=== PATIENT | female | born 1975 | race Caucasian/White ===

== ENCOUNTER 2020-09-12 20:37 | Inpatient (IN) ==
[2020-09-12 20:48] LABS: ABG ALLEN TEST POS; ABG BASE EXCESS 5.5 mmol/L (-2.0-2.0); ABG HCO3 29.9 mmol/L (22-26)
--- NOTE | 2020-09-12 20:55 | DR.SOBA ---
HPI Time Seen Time Seen by Provider: 09/12/20 20:51 Primary Care Physician Primary Care Physician: ANGELLA HPI Comment HPI Comment: Cough and worsening sob x a week after symptoms started last Friday; covid test + this past Friday as below; she finished ivermectin and is still taking zpak. Complaints Chief Complaint:: PT WHEELED INTO ER VIA W/C BY FAMILY MEMBER. PT STATES SHE BECOMES SOB WITH EXERTION. PATIENT STATES SHE TESTED POSITIVE FOR COVID FRIDAY. S&S COUGHING, LOSS OF ENERGY, HEADACHE AND LOSS OF TASTE. THE INTIAL SYMPTOM SHE HAD ON FRIDAY WAS FEVER. O2 SATS IN TRIAGE ON ROOM WAS 84%, AFTER WALKING FROM TRIAGE TO ER4 O2 SATS WAS 74%. NURSE NOTIFED RT FOR STAT ABG. Source History Provided: Patient Mode of Arrival Mode of Arrival: Wheelchair Timing Onset of Chief Complaint: 09/05/20 PMH PMH Past Medical History: Yes Past Medical History Comment: MS Past Surgical History: Yes Surgical History: , Cholecystectomy and [employer] Surgery Past Surgical History Comment: D7C Family History History of Family Medical Conditions: No (PT ADOPTED) Social History Does patient currently use any type of tobacco product: No Have you used tobacco products in the last 12 months: No Type of Tobacco Use: None Does any household member use tobacco: No Alcohol Use: None Do you use any recreational Drugs:: No Lives With: Family Lives Where: Home Infectious screening In the last 2 months have you had wt loss of >10#?: NO Have you had fever, night sweats or hemotysis?: No Have you traveled outside the country in the last 6 months?: No Isolation: Droplet ROS Review of Systems Eyes: No Symptoms Reported ENTM: No Symptoms Reported Cardiovascular: No Symptoms Reported Genitourinary: No Symptoms Reported Neurological: No Symptoms Reported Musculoskeletal: No Symptoms Reported Integumentary: No Symptoms Reported Hematologic/Lymphatic: No Symptoms Reported Endocrine: No Symptoms Reported Psychiatric: No Symptoms Reported PE Vital Signs Vitals: Temperature 98.9 F Pulse Rate 84 Respiratory Rate 22 Blood Pressure 113/63 O2 Sat by Pulse Oximetry 95 General Limitations: No Limitations General Appearance: Alert and In No Apparent Distress Head Head Exam: Normal Inspection Eyes Eye exam: Normal Appearance ENT ENT Exam: Normal Exam Neck Neck Exam: Normal Inspection Chest Chest Inspection: Normal Inspection Respiratory Respiratory Exam: Bilateral: Clear to Auscultation and Bilateral: Decreased Breath Sounds Cardiovascular Cardiovascular Exam: Regular Rate and Normal Rhythm Abdominal Exam Abdominal Exam: Normal Inspection, Normal Bowel Sounds and Soft Extremities Extremities Exam: Normal Inspection Back Back Exam: Normal Inspection Neurologic Neurological Exam: Alert, Oriented X3 and CN II-XII Intact Psychiatric Psychiatric Exam: Normal Affect and Normal Mood Skin Skin Exam: Warm, Dry, Intact and Normal Color MDM Differential Diagnosis Differential Diagnosis: Pneumonia, Pulmonary embolism, Respiratory Failure and URI COURSE Reevaluation 1st: Improved (resting quietly; feels "better") ROR Labs Reviewed Laboratory Results Reviewed?: Yes Result Diagrams: 09/12/20 21:13 09/12/20 21:13 Laboratory: WBC 4.3 X10^3/uL (3.6-10.0) 09/12/20 21:13 RBC 4.56 X10^6/uL (3.5-5.4) 09/12/20 21:13 Hgb 11.2 g/dL (12.0-16.0) L 09/12/20 21:13 Hct 34.6 % (36.0-47.0) L 09/12/20 21:13 MCV 75.8 fL (80.0-100.0) L 09/12/20 21:13 MCH 24.5 pg (27.0-34.0) L 09/12/20 21:13 MCHC 32.3 g/dL (33.0-35.0) L 09/12/20 21:13 RDW 17.7 % (11.6-16.5) H 09/12/20 21:13 Plt Count 283 X10^3/uL (150.0-450.0) 09/12/20 21:13 MPV 7.9 fL (7.4-11.0) 09/12/20 21:13 Neut % (Auto) 65.5 % (42.0-75.0) 09/12/20 21:13 Lymph % (Auto) 23.5 % (21.0-51.0) 09/12/20 21:13 Routt % (Auto) 10.8 % (0.0-13.0) 09/12/20 21:13 Eos % (Auto) 0.0 % (0.9-2.9) L 09/12/20 21:13 Baso % (Auto) 0.2 % (0.2-1.0) 09/12/20 21:13 Neut # (Auto) 2.8 x10^3/uL (2.2-4.8) 09/12/20 21:13 Lymph # (Auto) 1.0 X10^3/uL (1.3-2.9) L 09/12/20 21:13 Routt # (Auto) 0.5 x10^3/uL (0.3-0.8) 09/12/20 21:13 Eos # (Auto) 0.0 x10^3/uL (0.0-0.2) 09/12/20 21:13 Baso # (Auto) 0.0 X10^3/uL (0.0-0.1) 09/12/20 21:13 Absolute Nucleated RBC 0.2 /100WBC 09/12/20 21:13 D-Dimer 0.55 ug/ml (0.0-0.57) 09/12/20 21:13 Sample Site Lra 09/12/20 20:20 ABG pH 7.460 (7.35-7.45) H 09/12/20 20:20 ABG pCO2 42.0 mmHg (35.0-45.0) 09/12/20 20:20 ABG pO2 53.0 mmHg (80.0-100.0) L 09/12/20 20:20 ABG HCO3 29.9 mmol/L (22-26) H 09/12/20 20:20 ABG O2 Saturation 89.0 % (90-100) L 09/12/20 20:20 ABG Base Excess 5.5 mmol/L (-2.0-2.0) H 09/12/20 20:20 Justus Test Pos 09/12/20 20:20 A-a Gradient 44.0 mmHg 09/12/20 20:20 FiO2 21.0 09/12/20 20:20 Blood Gas Comments Mireya well mts 09/12/20 20:20 Sodium 143 mmol/L (136-145) 09/12/20 21:13 Corrected Sodium 143 mmol/L (136-145) 09/12/20 21:13 Potassium 3.6 mmol/L (3.5-5.1) 09/12/20 21:13 Chloride 107 mmol/L (98-107) 09/12/20 21:13 Carbon Dioxide 31.5 mmol/L (21-32) 09/12/20 21:13 BUN 10 mg/dL (7-18) 09/12/20 21:13 Creatinine 0.69 mg/dL (0.55-1.02) 09/12/20 21:13 Est GFR (MDRD) Af Amer > 60 (>60) 09/12/20 21:13 Est GFR (MDRD) Non-Af > 60 (>60) 09/12/20 21:13 Glucose 120 mg/dL (65-99) H 09/12/20 21:13 Calcium 7.8 mg/dL (8.5-10.1) L 09/12/20 21:13 Corrected Calcium 9.1 mg/dL (8.5-10.1) 09/12/20 21:13 Total Bilirubin 0.50 mg/dL (0.2-1.0) 09/12/20 21:13 AST 157 Units/L (15-37) H 09/12/20 21:13 ALT 157 Units/L (12-78) H 09/12/20 21:13 Alkaline Phosphatase 166 Units/L (46-116) H 09/12/20 21:13 Total Protein 6.9 g/dL (6.4-8.2) 09/12/20 21:13 Albumin 2.4 g/dL (3.4-5.0) L 09/12/20 21:13 Globulin 4.5 g/dL (2.5-4.5) 09/12/20 21:13 Albumin/Globulin Ratio 0.5 Ratio (1.1-2.1) L 09/12/20 21:13 Other Results Comments: no beds available; hypoxia worse with ambulation; discharge with explicit instructions to fup in AM for home oxygen XRAY XRAY Interpreted by: Radiologist X-ray Results: pcxr: Findings are most consistent with an atypical pneumonia pattern which may be associated with a nonspecific viral or atypical organism infection including COVID-19. Mildly prominent cardiac silhouette which may be magnified by technique. Opioid Opioid Risk Tool Age (Cuong box if 16-45): Yes History of Preadolescent Sexual Abuse: No Total: 1 Total Score Risk Category: Low Risk Copyright: [facility] predicting aberrant behaviors Diagnosis Discharge Problem: Atypical pneumonia, Hypoxia, Acute dehydration, COVID-19, Elevated LFTs Instructions Instructions: Hypoxia Forms: Precautions for COVID19 Patient Portal Social Distancing
[2020-09-12 21:19] LABS: BASOPHILS % (AUTO) 0.2 % (0.2-1.0); HEMATOCRIT 34.6 % (36.0-47.0); HEMOGLOBIN 11.2 g/dL (12.0-16.0); LYMPHOCYTES % (AUTO) 23.5 % (21.0-51.0); MEAN CORPUSCULAR HEMOGLOBIN 24.5 pg (27.0-34.0); MEAN CORPUSCULAR HGB CONC 32.3 g/dL (33.0-35.0); MEAN CORPUSCULAR VOLUME 75.8 fL (80.0-100.0); MEAN PLATELET VOLUME 7.9 fL (7.4-11.0); MONOCYTES # (AUTO) 0.5 x10^3/uL (0.3-0.8); MONOCYTES % (AUTO) 10.8 % (0.0-13.0); NEUTROPHILS # (AUTO) 2.8 x10^3/uL (2.2-4.8); NEUTROPHILS % (AUTO) 65.5 % (42.0-75.0); PLATELET COUNT 283 X10^3/uL (150.0-450.0); RED BLOOD COUNT 4.56 X10^6/uL (3.5-5.4); RED CELL DISTRIBUTION WIDTH 17.7 % (11.6-16.5); WHITE BLOOD COUNT 4.3 X10^3/uL (3.6-10.0)
[2020-09-12 21:31] LABS: ALANINE AMINOTRANSFERASE 157 Units/L (12-78); ALBUMIN 2.4 g/dL (3.4-5.0); ALKALINE PHOSPHATASE 166 Units/L (46-116); ASPARTATE AMINO TRANSFERASE 157 Units/L (15-37); BLOOD UREA NITROGEN 10 mg/dL (7-18); CALCIUM 7.8 mg/dL (8.5-10.1); CARBON DIOXIDE 31.5 mmol/L (21-32); CHLORIDE 107 mmol/L (98-107); COR CA(FOR HYPOALB) 9.1 mg/dL (8.5-10.1); COR NA(FOR HYPERGLY) 143 mmol/L (136-145); CREATININE 0.69 mg/dL (0.55-1.02); SODIUM 143 mmol/L (136-145); TOTAL PROTEIN 6.9 g/dL (6.4-8.2); eGFR NON BLACK RACES > 60 (>60)
--- NOTE | 2020-09-12 21:47 | RAD ---
HISTORYPT STATES SHE BECOMES SOB WITH EXERTION. PATIENT STATES SHE TESTED POSITIVE FOR COVID FELISHA. Coughing, LOSS OF ENERGY, HEADACHE AND LOSS OF TASTESTUDYCHEST, 1 VIEWCOMPARISONChest x-ray single frontal viewTECHNIQUEPortable chest radiographFINDINGSThe cardiac silhouette is prominent. Diffuse bilateral peribronchial and peripheral subpleural alveolar ground-glass opacities are demonstrated, the pattern which with favor an atypical pneumonia pattern. The pleural spaces are clear. There is no evidence of free air or pneumothorax. No acute osseous abnormalities of the chest are identified.IMPRESSIONFindings are most consistent with an atypical pneumonia pattern which may be associated with a nonspecific viral or atypical organism infection including COVID-19Mildly prominent cardiac silhouette which may be magnified by technique.Electronically signed by: RICHARD COOK (Sep 12, 2020 21:48:44)
[2020-09-12] MEDS ORDERED: NS 1000 ML 1,000 ML IV ONE (22:28)
[2020-09-12] MEDS ORDERED: SOLU-Medrol 125 MG VIAL IVP ONE (22:39)
[2020-09-12] MEDS ORDERED: NS 1000 ML 1,000 ML ONE (22:42)
[2020-09-12] MEDS ORDERED: SOLU-Medrol 125 MG VIAL ONE (22:42)
[2020-09-13] MEDS ORDERED: NS 1000 ML 1,000 ML ONE (01:08)
[2020-09-13] MEDS: NS 1000 ML 1,000 ML IV SCH ×3 (01:13→20:31)
[2020-09-13] MEDS: VIBRAMYCIN 100 MG in D5W 250 ML IV 250 ML IV SCH ×3 (02:27→20:32)
[2020-09-13 03:20] VITALS: BMI 45.6
[2020-09-13 05:26] LABS: BASOPHILS % (AUTO) 0.1 % (0.2-1.0); HEMOGLOBIN 10.9 g/dL (12.0-16.0); LYMPHOCYTES # (AUTO) 0.6 X10^3/uL (1.3-2.9); LYMPHOCYTES % (AUTO) 12.3 % (21.0-51.0); MEAN CORPUSCULAR HEMOGLOBIN 24.6 pg (27.0-34.0); MEAN CORPUSCULAR HGB CONC 32.9 g/dL (33.0-35.0); MEAN CORPUSCULAR VOLUME 74.7 fL (80.0-100.0); MEAN PLATELET VOLUME 8.2 fL (7.4-11.0); MONOCYTES # (AUTO) 0.2 x10^3/uL (0.3-0.8); MONOCYTES % (AUTO) 3.4 % (0.0-13.0); NEUTROPHILS % (AUTO) 84.2 % (42.0-75.0); PLATELET COUNT 291 X10^3/uL (150.0-450.0); RED BLOOD COUNT 4.42 X10^6/uL (3.5-5.4); RED CELL DISTRIBUTION WIDTH 17.1 % (11.6-16.5); WHITE BLOOD COUNT 4.7 X10^3/uL (3.6-10.0)
[2020-09-13 05:43] LABS: ALANINE AMINOTRANSFERASE 148 Units/L (12-78); ALBUMIN 2.2 g/dL (3.4-5.0); ALKALINE PHOSPHATASE 160 Units/L (46-116); ASPARTATE AMINO TRANSFERASE 142 Units/L (15-37); BLOOD UREA NITROGEN 9 mg/dL (7-18); CALCIUM 7.8 mg/dL (8.5-10.1); CARBON DIOXIDE 25.2 mmol/L (21-32); CHLORIDE 107 mmol/L (98-107); COR CA(FOR HYPOALB) 9.2 mg/dL (8.5-10.1); COR NA(FOR HYPERGLY) 143 mmol/L (136-145); CREATININE 0.55 mg/dL (0.55-1.02); SODIUM 141 mmol/L (136-145); TOTAL PROTEIN 6.7 g/dL (6.4-8.2); eGFR NON BLACK RACES > 60 (>60)
[2020-09-13 05:49] LABS: HYPOCHROMASIA SLIGHT; MICROCYTOSIS SLIGHT; PLATELET MORPHOLOGY COMMENT NORMAL (NORMAL)
[2020-09-13] MEDS ORDERED: REMDESIVIR 200 MG in NS 250 ML IV 250 ML IV NR (08:06)
[2020-09-13] MEDS ORDERED: LOVENOX INJ 40 MG SYR SC SCH ×2 (09:00→21:00)
[2020-09-13] MEDS: CELEXA PO SCH (09:17)
[2020-09-13] MEDS: SOLU-Medrol 40 MG VIAL IVP SCH ×3 (09:17→21:00)
[2020-09-13] MEDS: BROVANA IN SCH ×2 (09:23→21:00)
[2020-09-13] MEDS: PULMICORT NEB TX 0.5 MG NEB SCH ×2 (09:29→21:05)
[2020-09-13] MEDS: VITAMIN A PO SCH (12:04)
[2020-09-13] MEDS: VITAMIN C PO SCH (12:05)
[2020-09-13] MEDS: VITAMIN D3 125 mcg (5,000 UNITS) PO SCH (12:06)
[2020-09-13] MEDS: ZINC SULFATE PO SCH (12:06)
[2020-09-13] MEDS: ZOSYN VIAL 3.375 GRAMS 3.375 G in NS 100 ML IV + SPIKE MINIBAG* 100 ML IV SCH ×3 (12:08→22:36)
--- NOTE | 2020-09-13 13:06 | DR.H&P ---
H&P History & Physical for Day of: H&P Date: 09/13/20 Chief Complaint Chief Complaint: worsening dyspnea Allergies Allergies Allergy/AdvReac Type Severity Reaction Status Date / Time No Known Drug Allergies Allergy Verified 09/12/20 20:50 History of Present Illness History of Present Illness: Ms Dalton is a 45yo female with a PMH of MS, obesity, depression presents with worsening dyspnea. Patient tested positive for COVID-19 on Friday09/08/20 and has been having increased shortness of breath. Patient states her mother forced her to come to the ER as she was having difficulty breathing. She denies vomiting or diarrhea, appetite is normal. She has some cough. Denies fever or chills. ER work up Labs: WBC 4.7 Hgb: 10.9 BUN/Cr: 9/0.55 AST/ALT: 142/148 D-dimer: 0.55 AB.46/42/53/29 sats 89% on room air CXR: suggestive of atypical pneumonia Patient was started on Doxycycline and IV solumedrol. She is currently on 5L O2 with sats between 88-90%. Plan: Wean O2 as tolerated to keep sats > 92%. Will start Remdesivir and Zosyn. Continue IV solumedrol and doxycycline. Add lovenox 30 mg BID. Add vitamin support, IS and nebs. Continue pulmicort. Continue gentle hydration. Resume home medications. Monitor AM labs and imaging. Time spent for clinical assessment, reviewing labs/imaging, physical exam, decision making and documentation greater than 75 mins. Past Medical History Past Medical History: Depression Additional Medical History: MS Past Surgical History Surgical History: , Cholecystectomy and CVT RN Surgery Family History Family Medical History: Cancer Social History Does patient currently use any type of tobacco product: No Have you used tobacco products in the last 12 months: No Type of Tobacco Use: None Does any household member use tobacco: No Alcohol Use: None Drug Use: None Prescription drug monitoring program results: PDMP reviewed and no concerns identified Medications Home Medications: No Known Drug Allergies Allergy (Verified 09/12/20 20:50) CONTINUE taking the following medications citalopram 40 mg PO DAILY 09/13/20 [History] New Prescriptions albuterol sulfate 2 puff INHALATION Q6H PRN #18 g 09/13/20 [Rx] dexamethasone 6 mg PO DAILY #10 tab 09/13/20 [Rx] hydrocodone-chlorpheniramine 5 ml PO Q12H PRN #118 ml MDD 10 milliliters 09/13/20 [Rx] Labs Result Diagrams: 09/13/20 04:40 09/13/20 04:40 Labs: Laboratory WBC 4.7 X10^3/uL (3.6-10.0) 09/13/20 04:40 RBC 4.42 X10^6/uL (3.5-5.4) 09/13/20 04:40 Hgb 10.9 g/dL (12.0-16.0) L 09/13/20 04:40 Hct 33.0 % (36.0-47.0) L 09/13/20 04:40 MCV 74.7 fL (80.0-100.0) L 09/13/20 04:40 MCH 24.6 pg (27.0-34.0) L 09/13/20 04:40 MCHC 32.9 g/dL (33.0-35.0) L 09/13/20 04:40 RDW 17.1 % (11.6-16.5) H 09/13/20 04:40 Plt Count 291 X10^3/uL (150.0-450.0) 09/13/20 04:40 Plt Count Comment Adequate (ADEQUATE) 09/13/20 04:40 MPV 8.2 fL (7.4-11.0) 09/13/20 04:40 Neut % (Auto) 84.2 % (42.0-75.0) H 09/13/20 04:40 Lymph % (Auto) 12.3 % (21.0-51.0) L 09/13/20 04:40 Coffee % (Auto) 3.4 % (0.0-13.0) 09/13/20 04:40 Eos % (Auto) 0.0 % (0.9-2.9) L 09/13/20 04:40 Baso % (Auto) 0.1 % (0.2-1.0) L 09/13/20 04:40 Neut # (Auto) 4.0 x10^3/uL (2.2-4.8) 09/13/20 04:40 Lymph # (Auto) 0.6 X10^3/uL (1.3-2.9) L 09/13/20 04:40 Coffee # (Auto) 0.2 x10^3/uL (0.3-0.8) L 09/13/20 04:40 Eos # (Auto) 0.0 x10^3/uL (0.0-0.2) 09/13/20 04:40 Baso # (Auto) 0.0 X10^3/uL (0.0-0.1) 09/13/20 04:40 Absolute Nucleated RBC 0.1 /100WBC 09/13/20 04:40 Plt Morphology Comment Normal (NORMAL) 09/13/20 04:40 RBC Morphology Abnormal (NORMAL) A 09/13/20 04:40 Hypochromasia Slight A 09/13/20 04:40 Microcytosis Slight A 09/13/20 04:40 D-Dimer 0.55 ug/ml (0.0-0.57) 09/12/20 21:13 Sample Site Lra 09/12/20 20:20 ABG pH 7.460 (7.35-7.45) H 09/12/20 20:20 ABG pCO2 42.0 mmHg (35.0-45.0) 09/12/20 20:20 ABG pO2 53.0 mmHg (80.0-100.0) L 09/12/20 20:20 ABG HCO3 29.9 mmol/L (22-26) H 09/12/20 20:20 ABG O2 Saturation 89.0 % (90-100) L 09/12/20 20:20 ABG Base Excess 5.5 mmol/L (-2.0-2.0) H 09/12/20 20:20 Justus Test Pos 09/12/20 20:20 A-a Gradient 44.0 mmHg 09/12/20 20:20 FiO2 21.0 09/12/20 20:20 Blood Gas Comments Mireya well mts 09/12/20 20:20 Sodium 141 mmol/L (136-145) 09/13/20 04:40 Corrected Sodium 143 mmol/L (136-145) 09/13/20 04:40 Potassium 4.0 mmol/L (3.5-5.1) 09/13/20 04:40 Chloride 107 mmol/L (98-107) 09/13/20 04:40 Carbon Dioxide 25.2 mmol/L (21-32) 09/13/20 04:40 BUN 9 mg/dL (7-18) 09/13/20 04:40 Creatinine 0.55 mg/dL (0.55-1.02) 09/13/20 04:40 Est GFR (MDRD) Af Amer > 60 (>60) 09/13/20 04:40 Est GFR (MDRD) Non-Af > 60 (>60) 09/13/20 04:40 Glucose 165 mg/dL (65-99) H 09/13/20 04:40 Calcium 7.8 mg/dL (8.5-10.1) L 09/13/20 04:40 Corrected Calcium 9.2 mg/dL (8.5-10.1) 09/13/20 04:40 Total Bilirubin 0.50 mg/dL (0.2-1.0) 09/13/20 04:40 AST 142 Units/L (15-37) H 09/13/20 04:40 ALT 148 Units/L (12-78) H 09/13/20 04:40 Alkaline Phosphatase 160 Units/L (46-116) H 09/13/20 04:40 Total Protein 6.7 g/dL (6.4-8.2) 09/13/20 04:40 Albumin 2.2 g/dL (3.4-5.0) L 09/13/20 04:40 Globulin 4.5 g/dL (2.5-4.5) 09/13/20 04:40 Albumin/Globulin Ratio 0.5 Ratio (1.1-2.1) L 09/13/20 04:40 SARS-CoV-2 (PCR) Positive (NEGATIVE) A 09/13/20 00:40 Influenza Type A (PCR) Negative (NEGATIVE) 09/13/20 00:40 Influenza Type B (PCR) Negative (NEGATIVE) 09/13/20 00:40 RSV (PCR) Negative (NEGATIVE) 09/13/20 00:40 Review of Systems Constitutional: Weakness Eyes: No Symptoms Reported ENT: No Symptoms Reported Respiratory: Cough, Shortness of Breath and SOB with Excertion Cardiovascular: No Symptoms Reported Gastrointestinal: Nausea Genitourinary: No Symptoms Reported Musculoskeletal: No Symptoms Reported Skin: No Symptoms Reported Neurological: No Symptoms Reported Physical Exam Vital Signs: Temperature 97.0 F Pulse Rate 83 Respiratory Rate 20 Blood Pressure 149/70 O2 Sat by Pulse Oximetry 88 Oriented: Normal Eyes: Normal Ear: Normal Nose: Normal Throat: Normal Respiratory: Diminished Throughout and Rhonchi Throughout Cardiovascular: Normal Auscultation: Bowel Sounds: Normal Palpation: Normal Tenderness: Normal Skin: Normal Musculoskeletal: Normal Psychiatric: Normal Mood Description: Calm and Appropriate Affect: Normal Speech Pattern: Clear and Appropriate Assessment/Plan (1) Pneumonia due to COVID-19 virus: Status: Acute (2) Acute respiratory failure with hypoxia: Status: Acute (3) Acute dehydration: Status: Acute (4) Atypical pneumonia: Status: Acute (5) Multiple sclerosis: Status: Acute Review H&P Reviewed: Yes Patient was examined?: Yes
[2020-09-13] MEDS: TESSALON PERLES PO PRN (20:34)
[2020-09-13] MEDS: LOVENOX INJ 30 MG SYR SC SCH (20:36)
[2020-09-14] MEDS: TYLENOL 325 MG TAB PO PRN ×2 (03:10→21:10)
[2020-09-14] MEDS: NS 1000 ML 1,000 ML IV SCH ×2 (04:59→17:12)
[2020-09-14] MEDS: ZOSYN VIAL 3.375 GRAMS 3.375 G in NS 100 ML IV + SPIKE MINIBAG* 100 ML IV SCH ×3 (05:01→23:04)
[2020-09-14] MEDS: SOLU-Medrol 40 MG VIAL IVP SCH ×3 (05:01→21:00)
[2020-09-14 05:10] LABS: ABG BASE EXCESS 4.2 mmol/L (-2.0-2.0); ABG HCO3 27.1 mmol/L (22-26)
[2020-09-14 05:26] LABS: BASOPHILS % (AUTO) 0.1 % (0.2-1.0); HEMATOCRIT 32.7 % (36.0-47.0); HEMOGLOBIN 10.8 g/dL (12.0-16.0); LYMPHOCYTES # (AUTO) 0.8 X10^3/uL (1.3-2.9); LYMPHOCYTES % (AUTO) 12.7 % (21.0-51.0); MEAN CORPUSCULAR HEMOGLOBIN 24.6 pg (27.0-34.0); MEAN CORPUSCULAR VOLUME 74.6 fL (80.0-100.0); MONOCYTES # (AUTO) 0.4 x10^3/uL (0.3-0.8); MONOCYTES % (AUTO) 6.8 % (0.0-13.0); NEUTROPHILS # (AUTO) 5.3 x10^3/uL (2.2-4.8); NEUTROPHILS % (AUTO) 80.4 % (42.0-75.0); PLATELET COUNT 336 X10^3/uL (150.0-450.0); RED BLOOD COUNT 4.39 X10^6/uL (3.5-5.4); RED CELL DISTRIBUTION WIDTH 17.2 % (11.6-16.5); WHITE BLOOD COUNT 6.6 X10^3/uL (3.6-10.0)
[2020-09-14 05:45] LABS: PLATELET MORPHOLOGY COMMENT NORMAL (NORMAL)
[2020-09-14 05:46] LABS: HYPOCHROMASIA SLIGHT; MICROCYTOSIS SLIGHT
[2020-09-14 05:50] LABS: ALANINE AMINOTRANSFERASE 99 Units/L (12-78); ALBUMIN 2.1 g/dL (3.4-5.0); ALKALINE PHOSPHATASE 132 Units/L (46-116); ASPARTATE AMINO TRANSFERASE 63 Units/L (15-37); BLOOD UREA NITROGEN 12 mg/dL (7-18); CALCIUM 7.7 mg/dL (8.5-10.1); CARBON DIOXIDE 26.4 mmol/L (21-32); CHLORIDE 107 mmol/L (98-107); COR CA(FOR HYPOALB) 9.2 mg/dL (8.5-10.1); COR NA(FOR HYPERGLY) 145 mmol/L (136-145); CREATININE 0.69 mg/dL (0.55-1.02); SODIUM 143 mmol/L (136-145); TOTAL PROTEIN 6.4 g/dL (6.4-8.2); eGFR NON BLACK RACES > 60 (>60)
--- NOTE | 2020-09-14 06:47 | RAD ---
HISTORYFollow-up COVID-19STUDYChest AP [id number] is enlarged. Diffuse bilateral alveolar infiltrates are unc hanged considering a difference in film technique. No pleural effusions are identified. Bony thorax i s unremarkable.IMPRESSIONNo change cardiomegaly without definite congestive heart failureNo change di ffuse bilateral patchy and confluent alveolar infiltrates when compared to the prior examination.Elec tronically signed by: DUNIA OLMOS (Sep 14, 2020 06:45:43)
[2020-09-14] MEDS: LOVENOX INJ 30 MG SYR SC SCH ×2 (09:57→20:35)
[2020-09-14] MEDS: CELEXA PO SCH (09:57)
[2020-09-14] MEDS: ZINC SULFATE PO SCH (09:58)
[2020-09-14] MEDS: VIBRAMYCIN 100 MG in D5W 250 ML IV 250 ML IV SCH ×2 (09:58→20:34)
[2020-09-14] MEDS: VITAMIN C PO SCH (09:58)
[2020-09-14] MEDS: VITAMIN A PO SCH (09:58)
[2020-09-14] MEDS: VITAMIN D3 125 mcg (5,000 UNITS) PO SCH (09:58)
--- NOTE | 2020-09-14 09:58 | PCM.PROG ---
Progress Note Progress Note for Day of Date of Exam: 09/14/20 Subjective Subjective: Patient seen at bedside, no acute events overnight. Patient had to be switched to [facility] yesterday afternoon due to sats staying in the mid 80s. She is currently on FiO2 51% with sats between 88-90%. She states she feels better. She has some cough mostly dry. She reports normal appetite. She denies fever or chills. Labs: WBC 6.6 Hgb 10.8 BUN/Cr: 145/3.6 K: 3.6 CRP: 54 AST/ALT: 63/99 AB.51/34/61/27 sats 93% on FiO2 51% CXR: no change in diffuse patchy bilateral infiltrates Plan: Wean O2 as tolerated to keep sats > 92%. Continue nebs, pulmicort and IS. Continue IV Remdesivir, Soulmedrol, Zosyn and doxycycline. Continue vitamin support. Continue home medications. PT/OT as tolerated. Monitor AM labs and imaging. Time spent for clinical assessment, reviewing labs/imaging, physical exam, decision making and documentation greater than 75 mins. Past Medical Family Social History Past Med/Fam/Surg Hx: No changes since H&P Allergies: Allergies No Known Drug Allergies Allergy (Verified 09/12/20 20:50) Review of Systems ROS: No change since H&P Vital Signs and I&O's Vital Signs: Temperature 98.3 F Pulse Rate 62 Respiratory Rate 32 Blood Pressure 154/68 O2 Sat by Pulse Oximetry 90 Intake and Output: Intake & Output 09/11/20 09/12/20 09/13/20 09/14/20 23:59 23:59 23:59 23:59 Intake Total 2961 / 2961 800 / 800 Output Total 700 / 700 Balance 2261 / 2261 800 / 800 Physical Exam Oriented: Normal Eyes: Normal Ear: Normal Nose: Normal Throat: Normal Respiratory: Generalized, Diminished and Rhonchi Cardiovascular: Normal Auscultation: Bowel Sounds: Normal Tenderness: Normal Skin: Normal Musculoskeletal: Normal Psychiatric: Normal Mood Description: Calm and Appropriate Affect: Normal Speech Pattern: Clear and Appropriate Laboratory and Diagnostics Result Diagrams: 09/14/20 04:42 09/14/20 04:42 Labs: Laboratory WBC 6.6 X10^3/uL (3.6-10.0) 09/14/20 04:42 RBC 4.39 X10^6/uL (3.5-5.4) 09/14/20 04:42 Hgb 10.8 g/dL (12.0-16.0) L 09/14/20 04:42 Hct 32.7 % (36.0-47.0) L 09/14/20 04:42 MCV 74.6 fL (80.0-100.0) L 09/14/20 04:42 MCH 24.6 pg (27.0-34.0) L 09/14/20 04:42 MCHC 33.0 g/dL (33.0-35.0) 09/14/20 04:42 RDW 17.2 % (11.6-16.5) H 09/14/20 04:42 Plt Count 336 X10^3/uL (150.0-450.0) 09/14/20 04:42 Plt Count Comment Adequate (ADEQUATE) 09/14/20 04:42 MPV 8.0 fL (7.4-11.0) 09/14/20 04:42 Neut % (Auto) 80.4 % (42.0-75.0) H 09/14/20 04:42 Lymph % (Auto) 12.7 % (21.0-51.0) L 09/14/20 04:42 Carter % (Auto) 6.8 % (0.0-13.0) 09/14/20 04:42 Eos % (Auto) 0.0 % (0.9-2.9) L 09/14/20 04:42 Baso % (Auto) 0.1 % (0.2-1.0) L 09/14/20 04:42 Neut # (Auto) 5.3 x10^3/uL (2.2-4.8) H 09/14/20 04:42 Lymph # (Auto) 0.8 X10^3/uL (1.3-2.9) L 09/14/20 04:42 Carter # (Auto) 0.4 x10^3/uL (0.3-0.8) 09/14/20 04:42 Eos # (Auto) 0.0 x10^3/uL (0.0-0.2) 09/14/20 04:42 Baso # (Auto) 0.0 X10^3/uL (0.0-0.1) 09/14/20 04:42 Absolute Nucleated RBC 0.0 /100WBC 09/14/20 04:42 Plt Morphology Comment Normal (NORMAL) 09/14/20 04:42 RBC Morphology Abnormal (NORMAL) A 09/14/20 04:42 Hypochromasia Slight A 09/14/20 04:42 Microcytosis Slight A 09/14/20 04:42 D-Dimer 0.55 ug/ml (0.0-0.57) 09/12/20 21:13 Sample Site Lb 09/14/20 04:58 ABG pH 7.510 (7.35-7.45) H 09/14/20 04:58 ABG pCO2 34.0 mmHg (35.0-45.0) L 09/14/20 04:58 ABG pO2 61.0 mmHg (80.0-100.0) L 09/14/20 04:58 ABG HCO3 27.1 mmol/L (22-26) H 09/14/20 04:58 ABG O2 Saturation 93.0 % (90-100) 09/14/20 04:58 ABG Base Excess 4.2 mmol/L (-2.0-2.0) H 09/14/20 04:58 Justus Test N/a 09/14/20 04:58 A-a Gradient 260.0 mmHg 09/14/20 04:58 FiO2 51.0 09/14/20 04:58 Blood Gas Comments Mireya well ae 09/14/20 04:58 Sodium 143 mmol/L (136-145) 09/14/20 04:42 Corrected Sodium 145 mmol/L (136-145) 09/14/20 04:42 Potassium 3.6 mmol/L (3.5-5.1) 09/14/20 04:42 Chloride 107 mmol/L (98-107) 09/14/20 04:42 Carbon Dioxide 26.4 mmol/L (21-32) 09/14/20 04:42 BUN 12 mg/dL (7-18) 09/14/20 04:42 Creatinine 0.69 mg/dL (0.55-1.02) 09/14/20 04:42 Est GFR (MDRD) Af Amer > 60 (>60) 09/14/20 04:42 Est GFR (MDRD) Non-Af > 60 (>60) 09/14/20 04:42 Glucose 166 mg/dL (65-99) H 09/14/20 04:42 Calcium 7.7 mg/dL (8.5-10.1) L 09/14/20 04:42 Corrected Calcium 9.2 mg/dL (8.5-10.1) 09/14/20 04:42 Total Bilirubin 0.30 mg/dL (0.2-1.0) 09/14/20 04:42 AST 63 Units/L (15-37) H 09/14/20 04:42 ALT 99 Units/L (12-78) H 09/14/20 04:42 Alkaline Phosphatase 132 Units/L (46-116) H 09/14/20 04:42 C-Reactive Protein 54.10 mg/L (0-3.0) H 09/14/20 04:42 Total Protein 6.4 g/dL (6.4-8.2) 09/14/20 04:42 Albumin 2.1 g/dL (3.4-5.0) L 09/14/20 04:42 Globulin 4.3 g/dL (2.5-4.5) 09/14/20 04:42 Albumin/Globulin Ratio 0.5 Ratio (1.1-2.1) L 09/14/20 04:42 SARS-CoV-2 (PCR) Positive (NEGATIVE) A 09/13/20 00:40 Influenza Type A (PCR) Negative (NEGATIVE) 09/13/20 00:40 Influenza Type B (PCR) Negative (NEGATIVE) 09/13/20 00:40 RSV (PCR) Negative (NEGATIVE) 09/13/20 00:40 Plan (1) Pneumonia due to COVID-19 virus: Status: Acute (2) Acute respiratory failure with hypoxia: Status: Acute (3) Acute dehydration: Status: Acute (4) Atypical pneumonia: Status: Acute (5) Multiple sclerosis: Status: Acute
[2020-09-14] MEDS: PULMICORT NEB TX 0.5 MG NEB SCH ×2 (10:00→20:20)
[2020-09-14] MEDS: BROVANA IN SCH ×2 (10:00→20:20)
[2020-09-14] MEDS: REMDESIVIR 100 MG in NS 250 ML IV 250 ML IV SCH (11:34)
[2020-09-14] MEDS ORDERED: ZOFRAN INJ 4 MG VIAL IVP PRN (14:09)
[2020-09-14] MEDS: TESSALON PERLES PO PRN (20:30)
[2020-09-14] MEDS: TUSSIONEX PENNKINETIC SUSP PO PRN (21:03)
[2020-09-15] MEDS: NS 1000 ML 1,000 ML IV SCH ×2 (04:55→20:44)
[2020-09-15] MEDS: ZOSYN VIAL 3.375 GRAMS 3.375 G in NS 100 ML IV + SPIKE MINIBAG* 100 ML IV SCH ×3 (05:00→22:56)
[2020-09-15] MEDS: SOLU-Medrol 40 MG VIAL IVP SCH ×3 (05:00→21:00)
[2020-09-15 05:29] LABS: BASOPHILS % (AUTO) 0.1 % (0.2-1.0); HEMATOCRIT 31.7 % (36.0-47.0); HEMOGLOBIN 10.4 g/dL (12.0-16.0); LYMPHOCYTES # (AUTO) 0.8 X10^3/uL (1.3-2.9); MEAN CORPUSCULAR HEMOGLOBIN 24.6 pg (27.0-34.0); MEAN CORPUSCULAR HGB CONC 32.8 g/dL (33.0-35.0); MEAN CORPUSCULAR VOLUME 74.8 fL (80.0-100.0); MEAN PLATELET VOLUME 7.9 fL (7.4-11.0); MONOCYTES # (AUTO) 0.5 x10^3/uL (0.3-0.8); MONOCYTES % (AUTO) 5.4 % (0.0-13.0); NEUTROPHILS % (AUTO) 85.5 % (42.0-75.0); PLATELET COUNT 361 X10^3/uL (150.0-450.0); RED BLOOD COUNT 4.23 X10^6/uL (3.5-5.4); RED CELL DISTRIBUTION WIDTH 17.7 % (11.6-16.5); WHITE BLOOD COUNT 9.3 X10^3/uL (3.6-10.0)
[2020-09-15 05:44] LABS: ALANINE AMINOTRANSFERASE 87 Units/L (12-78); ALBUMIN 2.1 g/dL (3.4-5.0); ALKALINE PHOSPHATASE 115 Units/L (46-116); ASPARTATE AMINO TRANSFERASE 49 Units/L (15-37); BLOOD UREA NITROGEN 18 mg/dL (7-18); CALCIUM 7.5 mg/dL (8.5-10.1); CARBON DIOXIDE 30.9 mmol/L (21-32); CHLORIDE 109 mmol/L (98-107); COR NA(FOR HYPERGLY) 146 mmol/L (136-145); CREATININE 0.72 mg/dL (0.55-1.02); SODIUM 144 mmol/L (136-145); TOTAL PROTEIN 6.1 g/dL (6.4-8.2); eGFR NON BLACK RACES > 60 (>60)
[2020-09-15 06:20] LABS: ANISOCYTOSIS SLIGHT; MICROCYTOSIS SLIGHT; PLATELET MORPHOLOGY COMMENT NORMAL (NORMAL)
[2020-09-15] MEDS: VIBRAMYCIN 100 MG in D5W 250 ML IV 250 ML IV SCH ×2 (09:54→20:50)
[2020-09-15] MEDS: CELEXA PO SCH (09:54)
[2020-09-15] MEDS: VITAMIN D3 125 mcg (5,000 UNITS) PO SCH (09:55)
[2020-09-15] MEDS: ZINC SULFATE PO SCH (09:55)
[2020-09-15] MEDS: VITAMIN C PO SCH (09:55)
[2020-09-15] MEDS: LOVENOX INJ 30 MG SYR SC SCH ×2 (09:56→20:51)
[2020-09-15] MEDS: VITAMIN A PO SCH (09:58)
[2020-09-15] MEDS: BROVANA IN SCH ×2 (10:00→21:00)
[2020-09-15] MEDS: PULMICORT NEB TX 0.5 MG NEB SCH ×2 (10:00→21:00)
[2020-09-15] MEDS: REMDESIVIR 100 MG in NS 250 ML IV 250 ML IV SCH (13:30)
[2020-09-15] MEDS: TYLENOL 325 MG TAB PO PRN (20:46)
[2020-09-15] MEDS: TESSALON PERLES PO PRN (20:46)
[2020-09-15] MEDS: TUSSIONEX PENNKINETIC SUSP PO PRN (21:59)
[2020-09-16] MEDS: ZOSYN VIAL 3.375 GRAMS 3.375 G in NS 100 ML IV + SPIKE MINIBAG* 100 ML IV SCH ×3 (05:10→23:00)
[2020-09-16] MEDS: SOLU-Medrol 40 MG VIAL IVP SCH ×3 (05:10→21:00)
[2020-09-16 05:12] LABS: BASOPHILS % (AUTO) 0.1 % (0.2-1.0); HEMATOCRIT 31.8 % (36.0-47.0); HEMOGLOBIN 10.3 g/dL (12.0-16.0); LYMPHOCYTES # (AUTO) 0.8 X10^3/uL (1.3-2.9); LYMPHOCYTES % (AUTO) 10.8 % (21.0-51.0); MEAN CORPUSCULAR HGB CONC 32.3 g/dL (33.0-35.0); MEAN CORPUSCULAR VOLUME 74.4 fL (80.0-100.0); MEAN PLATELET VOLUME 7.8 fL (7.4-11.0); MONOCYTES # (AUTO) 0.5 x10^3/uL (0.3-0.8); MONOCYTES % (AUTO) 6.7 % (0.0-13.0); NEUTROPHILS # (AUTO) 6.4 x10^3/uL (2.2-4.8); NEUTROPHILS % (AUTO) 82.4 % (42.0-75.0); PLATELET COUNT 359 X10^3/uL (150.0-450.0); RED BLOOD COUNT 4.27 X10^6/uL (3.5-5.4); RED CELL DISTRIBUTION WIDTH 17.4 % (11.6-16.5); WHITE BLOOD COUNT 7.8 X10^3/uL (3.6-10.0)
[2020-09-16 05:29] LABS: ALANINE AMINOTRANSFERASE 68 Units/L (12-78); ALKALINE PHOSPHATASE 107 Units/L (46-116); ASPARTATE AMINO TRANSFERASE 34 Units/L (15-37); BLOOD UREA NITROGEN 18 mg/dL (7-18); CALCIUM 7.7 mg/dL (8.5-10.1); CARBON DIOXIDE 29.3 mmol/L (21-32); CHLORIDE 110 mmol/L (98-107); COR CA(FOR HYPOALB) 9.3 mg/dL (8.5-10.1); COR NA(FOR HYPERGLY) 147 mmol/L (136-145); CREATININE 0.67 mg/dL (0.55-1.02); SODIUM 145 mmol/L (136-145); TOTAL PROTEIN 5.9 g/dL (6.4-8.2); eGFR NON BLACK RACES > 60 (>60)
[2020-09-16 06:04] LABS: ANISOCYTOSIS SLIGHT; HYPOCHROMASIA SLIGHT; MICROCYTOSIS SLIGHT; PLATELET MORPHOLOGY COMMENT NORMAL (NORMAL)
[2020-09-16] MEDS: CELEXA PO SCH (08:49)
[2020-09-16] MEDS: VITAMIN C PO SCH (08:50)
[2020-09-16] MEDS: REMDESIVIR 100 MG in NS 250 ML IV 250 ML IV SCH (08:50)
[2020-09-16] MEDS: LOVENOX INJ 30 MG SYR SC SCH ×2 (08:51→21:00)
[2020-09-16] MEDS: VITAMIN D3 125 mcg (5,000 UNITS) PO SCH (08:51)
[2020-09-16] MEDS: ZINC SULFATE PO SCH (08:51)
[2020-09-16] MEDS: VITAMIN A PO SCH (08:54)
[2020-09-16] MEDS: BROVANA IN SCH ×2 (09:57→20:20)
[2020-09-16] MEDS: PULMICORT NEB TX 0.5 MG NEB SCH ×2 (10:06→20:20)
--- NOTE | 2020-09-16 11:09 | PCM.PROG ---
Progress Note Progress Note for Day of Date of Exam: 09/15/20 Subjective Subjective: Patient seen at bedside, no acute events overnight. Patient remains on HHFNC, currently on FiO2 51% with sats between 88-90%. She states she feels better. She has some cough mostly dry. She reports normal appetite. She denies fever or chills. Labs: WBC 9.3 Hgb 10.4 BUN/Cr: 18/0.72 K: 4.0 AST/ALT: 49/87 AB.51/34/61/27 sats 93% on FiO2 51% CXR: no change in diffuse patchy bilateral infiltrates Plan: Wean O2 as tolerated to keep sats > 92%. Continue nebs, pulmicort and IS. Continue IV Remdesivir, Soulmedrol, Zosyn and doxycycline. Continue vitamin support. Continue home medications. PT/OT as tolerated. Monitor AM labs and imaging. Time spent for clinical assessment, reviewing labs/imaging, physical exam, decision making and documentation greater than 75 mins. Past Medical Family Social History Past Med/Fam/Surg Hx: No changes since H&P Allergies: Allergies No Known Drug Allergies Allergy (Verified 09/12/20 20:50) Review of Systems ROS: No change since H&P Vital Signs and I&O's Vital Signs: Temperature 98.1 F Pulse Rate 49 Respiratory Rate 33 Blood Pressure 159/73 O2 Sat by Pulse Oximetry 94 Intake and Output: Intake & Output 09/13/20 09/14/20 09/15/20 09/16/20 23:59 23:59 23:59 23:59 Intake Total 2961 / 2961 3759 / 3759 4105 / 4105 592 / 592 Output Total 700 / 700 350 / 350 Balance 2261 / 2261 3409 / 3409 4105 / 4105 592 / 592 Physical Exam Oriented: Normal Eyes: Normal Ear: Normal Nose: Normal Throat: Normal Respiratory: Generalized, Diminished and Rhonchi Cardiovascular: Normal Auscultation: Bowel Sounds: Normal Tenderness: Normal Skin: Normal Musculoskeletal: Normal Psychiatric: Normal Mood Description: Calm and Appropriate Affect: Normal Speech Pattern: Clear and Appropriate Laboratory and Diagnostics Result Diagrams: 09/16/20 04:35 09/16/20 04:35 Labs: Laboratory WBC 7.8 X10^3/uL (3.6-10.0) 09/16/20 04:35 RBC 4.27 X10^6/uL (3.5-5.4) 09/16/20 04:35 Hgb 10.3 g/dL (12.0-16.0) L 09/16/20 04:35 Hct 31.8 % (36.0-47.0) L 09/16/20 04:35 MCV 74.4 fL (80.0-100.0) L 09/16/20 04:35 MCH 24.0 pg (27.0-34.0) L 09/16/20 04:35 MCHC 32.3 g/dL (33.0-35.0) L 09/16/20 04:35 RDW 17.4 % (11.6-16.5) H 09/16/20 04:35 Plt Count 359 X10^3/uL (150.0-450.0) 09/16/20 04:35 Plt Count Comment Adequate (ADEQUATE) 09/16/20 04:35 MPV 7.8 fL (7.4-11.0) 09/16/20 04:35 Neut % (Auto) 82.4 % (42.0-75.0) H 09/16/20 04:35 Lymph % (Auto) 10.8 % (21.0-51.0) L 09/16/20 04:35 [place] % (Auto) 6.7 % (0.0-13.0) 09/16/20 04:35 Eos % (Auto) 0.0 % (0.9-2.9) L 09/16/20 04:35 Baso % (Auto) 0.1 % (0.2-1.0) L 09/16/20 04:35 Neut # (Auto) 6.4 x10^3/uL (2.2-4.8) H 09/16/20 04:35 Lymph # (Auto) 0.8 X10^3/uL (1.3-2.9) L 09/16/20 04:35 [place] # (Auto) 0.5 x10^3/uL (0.3-0.8) 09/16/20 04:35 Eos # (Auto) 0.0 x10^3/uL (0.0-0.2) 09/16/20 04:35 Baso # (Auto) 0.0 X10^3/uL (0.0-0.1) 09/16/20 04:35 Absolute Nucleated RBC 0.1 /100WBC 09/16/20 04:35 Plt Morphology Comment Normal (NORMAL) 09/16/20 04:35 RBC Morphology Abnormal (NORMAL) A 09/16/20 04:35 Hypochromasia Slight A 09/16/20 04:35 Anisocytosis Slight A 09/16/20 04:35 Microcytosis Slight A 09/16/20 04:35 D-Dimer 0.55 ug/ml (0.0-0.57) 09/12/20 21:13 Sample Site Lb 09/14/20 04:58 ABG pH 7.510 (7.35-7.45) H 09/14/20 04:58 ABG pCO2 34.0 mmHg (35.0-45.0) L 09/14/20 04:58 ABG pO2 61.0 mmHg (80.0-100.0) L 09/14/20 04:58 ABG HCO3 27.1 mmol/L (22-26) H 09/14/20 04:58 ABG O2 Saturation 93.0 % (90-100) 09/14/20 04:58 ABG Base Excess 4.2 mmol/L (-2.0-2.0) H 09/14/20 04:58 Justus Test N/a 09/14/20 04:58 A-a Gradient 260.0 mmHg 09/14/20 04:58 FiO2 51.0 09/14/20 04:58 Blood Gas Comments Mireya well ae 09/14/20 04:58 Sodium 145 mmol/L (136-145) 09/16/20 04:35 Corrected Sodium 147 mmol/L (136-145) H 09/16/20 04:35 Potassium 3.9 mmol/L (3.5-5.1) 09/16/20 04:35 Chloride 110 mmol/L (98-107) H 09/16/20 04:35 Carbon Dioxide 29.3 mmol/L (21-32) 09/16/20 04:35 BUN 18 mg/dL (7-18) 09/16/20 04:35 Creatinine 0.67 mg/dL (0.55-1.02) 09/16/20 04:35 Est GFR (MDRD) Af Amer > 60 (>60) 09/16/20 04:35 Est GFR (MDRD) Non-Af > 60 (>60) 09/16/20 04:35 Glucose 186 mg/dL (65-99) H 09/16/20 04:35 Calcium 7.7 mg/dL (8.5-10.1) L 09/16/20 04:35 Corrected Calcium 9.3 mg/dL (8.5-10.1) 09/16/20 04:35 Total Bilirubin 0.30 mg/dL (0.2-1.0) 09/16/20 04:35 AST 34 Units/L (15-37) 09/16/20 04:35 ALT 68 Units/L (12-78) 09/16/20 04:35 Alkaline Phosphatase 107 Units/L (46-116) 09/16/20 04:35 C-Reactive Protein 19.50 mg/L (0-3.0) H 09/15/20 04:44 Total Protein 5.9 g/dL (6.4-8.2) L 09/16/20 04:35 Albumin 2.0 g/dL (3.4-5.0) L 09/16/20 04:35 Globulin 3.9 g/dL (2.5-4.5) 09/16/20 04:35 Albumin/Globulin Ratio 0.5 Ratio (1.1-2.1) L 09/16/20 04:35 SARS-CoV-2 (PCR) Positive (NEGATIVE) A 09/13/20 00:40 Influenza Type A (PCR) Negative (NEGATIVE) 09/13/20 00:40 Influenza Type B (PCR) Negative (NEGATIVE) 09/13/20 00:40 RSV (PCR) Negative (NEGATIVE) 09/13/20 00:40 Plan (1) Pneumonia due to COVID-19 virus: Status: Acute (2) Acute respiratory failure with hypoxia: Status: Acute (3) Acute dehydration: Status: Acute (4) Atypical pneumonia: Status: Acute (5) Multiple sclerosis: Status: Acute
--- NOTE | 2020-09-16 11:11 | PCM.PROG ---
Progress Note Progress Note for Day of Date of Exam: 09/16/20 Subjective Subjective: Patient seen at bedside, no acute events overnight. Patient remains on HHFNC, currently on FiO2 53% with sats between 88-90%. She states she feels better. She has some cough mostly dry. She reports normal appetite. She denies fever or chills. She has not ambulated much and has not sat on the side of the bed. Labs: WBC 7.8 Hgb 10.3 BUN/Cr: 18/0.67 K: 3.9 AST/ALT: 434/68 AB.51/34/61/27 sats 93% on FiO2 51% CXR: no change in diffuse patchy bilateral infiltrates Plan: Repeat CXR. Wean O2 as tolerated to keep sats > 92%. Continue nebs, pulmicort and IS. Continue IV Remdesivir, Soulmedrol, Zosyn and doxycycline. Continue vitamin support. Continue home medications. PT/OT as tolerated. Advised to sit on the side of the bed during meals, ambulate in the room as tolerated. M onitor AM labs and imaging. Time spent for clinical assessment, reviewing labs/imaging, physical exam, decision making and documentation greater than 75 mins. Past Medical Family Social History Past Med/Fam/Surg Hx: No changes since H&P Allergies: Allergies No Known Drug Allergies Allergy (Verified 09/12/20 20:50) Review of Systems ROS: No change since H&P Vital Signs and I&O's Vital Signs: Temperature 98.1 F Pulse Rate 49 Respiratory Rate 33 Blood Pressure 159/73 O2 Sat by Pulse Oximetry 94 Intake and Output: Intake & Output 09/13/20 09/14/20 09/15/20 09/16/20 23:59 23:59 23:59 23:59 Intake Total 2961 / 2961 3759 / 3759 4105 / 4105 592 / 592 Output Total 700 / 700 350 / 350 Balance 2261 / 2261 3409 / 3409 4105 / 4105 592 / 592 Physical Exam Oriented: Normal Eyes: Normal Ear: Normal Nose: Normal Throat: Normal Respiratory: Generalized, Diminished and Rhonchi Cardiovascular: Normal Auscultation: Bowel Sounds: Normal Tenderness: Normal Skin: Normal Musculoskeletal: Normal Psychiatric: Normal Mood Description: Calm and Appropriate Affect: Normal Speech Pattern: Clear and Appropriate Laboratory and Diagnostics Result Diagrams: 09/16/20 04:35 09/16/20 04:35 Labs: Laboratory WBC 7.8 X10^3/uL (3.6-10.0) 09/16/20 04:35 RBC 4.27 X10^6/uL (3.5-5.4) 09/16/20 04:35 Hgb 10.3 g/dL (12.0-16.0) L 09/16/20 04:35 Hct 31.8 % (36.0-47.0) L 09/16/20 04:35 MCV 74.4 fL (80.0-100.0) L 09/16/20 04:35 MCH 24.0 pg (27.0-34.0) L 09/16/20 04:35 MCHC 32.3 g/dL (33.0-35.0) L 09/16/20 04:35 RDW 17.4 % (11.6-16.5) H 09/16/20 04:35 Plt Count 359 X10^3/uL (150.0-450.0) 09/16/20 04:35 Plt Count Comment Adequate (ADEQUATE) 09/16/20 04:35 MPV 7.8 fL (7.4-11.0) 09/16/20 04:35 Neut % (Auto) 82.4 % (42.0-75.0) H 09/16/20 04:35 Lymph % (Auto) 10.8 % (21.0-51.0) L 09/16/20 04:35 [place] % (Auto) 6.7 % (0.0-13.0) 09/16/20 04:35 Eos % (Auto) 0.0 % (0.9-2.9) L 09/16/20 04:35 Baso % (Auto) 0.1 % (0.2-1.0) L 09/16/20 04:35 Neut # (Auto) 6.4 x10^3/uL (2.2-4.8) H 09/16/20 04:35 Lymph # (Auto) 0.8 X10^3/uL (1.3-2.9) L 09/16/20 04:35 [place] # (Auto) 0.5 x10^3/uL (0.3-0.8) 09/16/20 04:35 Eos # (Auto) 0.0 x10^3/uL (0.0-0.2) 09/16/20 04:35 Baso # (Auto) 0.0 X10^3/uL (0.0-0.1) 09/16/20 04:35 Absolute Nucleated RBC 0.1 /100WBC 09/16/20 04:35 Plt Morphology Comment Normal (NORMAL) 09/16/20 04:35 RBC Morphology Abnormal (NORMAL) A 09/16/20 04:35 Hypochromasia Slight A 09/16/20 04:35 Anisocytosis Slight A 09/16/20 04:35 Microcytosis Slight A 09/16/20 04:35 D-Dimer 0.55 ug/ml (0.0-0.57) 09/12/20 21:13 Sample Site Lb 09/14/20 04:58 ABG pH 7.510 (7.35-7.45) H 09/14/20 04:58 ABG pCO2 34.0 mmHg (35.0-45.0) L 09/14/20 04:58 ABG pO2 61.0 mmHg (80.0-100.0) L 09/14/20 04:58 ABG HCO3 27.1 mmol/L (22-26) H 09/14/20 04:58 ABG O2 Saturation 93.0 % (90-100) 09/14/20 04:58 ABG Base Excess 4.2 mmol/L (-2.0-2.0) H 09/14/20 04:58 Justus Test N/a 09/14/20 04:58 A-a Gradient 260.0 mmHg 09/14/20 04:58 FiO2 51.0 09/14/20 04:58 Blood Gas Comments Mireya well ae 09/14/20 04:58 Sodium 145 mmol/L (136-145) 09/16/20 04:35 Corrected Sodium 147 mmol/L (136-145) H 09/16/20 04:35 Potassium 3.9 mmol/L (3.5-5.1) 09/16/20 04:35 Chloride 110 mmol/L (98-107) H 09/16/20 04:35 Carbon Dioxide 29.3 mmol/L (21-32) 09/16/20 04:35 BUN 18 mg/dL (7-18) 09/16/20 04:35 Creatinine 0.67 mg/dL (0.55-1.02) 09/16/20 04:35 Est GFR (MDRD) Af Amer > 60 (>60) 09/16/20 04:35 Est GFR (MDRD) Non-Af > 60 (>60) 09/16/20 04:35 Glucose 186 mg/dL (65-99) H 09/16/20 04:35 Calcium 7.7 mg/dL (8.5-10.1) L 09/16/20 04:35 Corrected Calcium 9.3 mg/dL (8.5-10.1) 09/16/20 04:35 Total Bilirubin 0.30 mg/dL (0.2-1.0) 09/16/20 04:35 AST 34 Units/L (15-37) 09/16/20 04:35 ALT 68 Units/L (12-78) 09/16/20 04:35 Alkaline Phosphatase 107 Units/L (46-116) 09/16/20 04:35 C-Reactive Protein 19.50 mg/L (0-3.0) H 09/15/20 04:44 Total Protein 5.9 g/dL (6.4-8.2) L 09/16/20 04:35 Albumin 2.0 g/dL (3.4-5.0) L 09/16/20 04:35 Globulin 3.9 g/dL (2.5-4.5) 09/16/20 04:35 Albumin/Globulin Ratio 0.5 Ratio (1.1-2.1) L 09/16/20 04:35 SARS-CoV-2 (PCR) Positive (NEGATIVE) A 09/13/20 00:40 Influenza Type A (PCR) Negative (NEGATIVE) 09/13/20 00:40 Influenza Type B (PCR) Negative (NEGATIVE) 09/13/20 00:40 RSV (PCR) Negative (NEGATIVE) 09/13/20 00:40 Plan (1) Pneumonia due to COVID-19 virus: Status: Acute (2) Acute respiratory failure with hypoxia: Status: Acute (3) Acute dehydration: Status: Acute (4) Atypical pneumonia: Status: Acute (5) Multiple sclerosis: Status: Acute
[2020-09-16] MEDS: VIBRAMYCIN 100 MG in D5W 250 ML IV 250 ML IV SCH ×2 (11:42→21:00)
--- NOTE | 2020-09-16 17:44 | RAD ---
Chest AP portableIndication: COVID-19. Hypoxia.Comparison September 14, 2020FINDINGSDense bilateral pulmonary opacities are similar to perhaps slightly worsened compared to the prior. Monitor leads and support devices obscure minimal detail. No large pneumothorax convincingly demonstrated. Heart size enlarged.IMPRESSIONCardiomegaly and patchy pulmonary opacities, similar to the prior, compatible with ARDS or COVID-19 viral pneumonitis. No large pneumothorax seen. Continued follow-up recommended.Electronically signed by: DEVORAH BURROUGHS (Sep 16, 2020 17:42:03)
[2020-09-16] MEDS: TESSALON PERLES PO PRN (21:00)
[2020-09-16] MEDS: TYLENOL 325 MG TAB PO PRN (21:00)
[2020-09-16] MEDS: TUSSIONEX PENNKINETIC SUSP PO PRN (21:00)
[2020-09-17] MEDS ORDERED: NS 500 ML IV 500 ML IV ONE (04:03)
[2020-09-17 05:32] LABS: BASOPHILS % (AUTO) 0.1 % (0.2-1.0); HEMATOCRIT 31.6 % (36.0-47.0); HEMOGLOBIN 10.4 g/dL (12.0-16.0); LYMPHOCYTES # (AUTO) 0.9 X10^3/uL (1.3-2.9); LYMPHOCYTES % (AUTO) 12.3 % (21.0-51.0); MEAN CORPUSCULAR HEMOGLOBIN 24.7 pg (27.0-34.0); MEAN CORPUSCULAR HGB CONC 33.1 g/dL (33.0-35.0); MEAN CORPUSCULAR VOLUME 74.7 fL (80.0-100.0); MEAN PLATELET VOLUME 7.7 fL (7.4-11.0); MONOCYTES # (AUTO) 0.4 x10^3/uL (0.3-0.8); MONOCYTES % (AUTO) 5.8 % (0.0-13.0); NEUTROPHILS % (AUTO) 81.8 % (42.0-75.0); PLATELET COUNT 356 X10^3/uL (150.0-450.0); RED BLOOD COUNT 4.23 X10^6/uL (3.5-5.4); RED CELL DISTRIBUTION WIDTH 17.3 % (11.6-16.5); WHITE BLOOD COUNT 7.4 X10^3/uL (3.6-10.0)
[2020-09-17 05:47] LABS: ALANINE AMINOTRANSFERASE 66 Units/L (12-78); ALBUMIN 2.1 g/dL (3.4-5.0); ALKALINE PHOSPHATASE 102 Units/L (46-116); ASPARTATE AMINO TRANSFERASE 33 Units/L (15-37); BLOOD UREA NITROGEN 16 mg/dL (7-18); CALCIUM 7.7 mg/dL (8.5-10.1); CARBON DIOXIDE 30.8 mmol/L (21-32); CHLORIDE 108 mmol/L (98-107); COR CA(FOR HYPOALB) 9.2 mg/dL (8.5-10.1); COR NA(FOR HYPERGLY) 148 mmol/L (136-145); CREATININE 0.73 mg/dL (0.55-1.02); SODIUM 145 mmol/L (136-145); TOTAL PROTEIN 5.9 g/dL (6.4-8.2); eGFR NON BLACK RACES > 60 (>60)
[2020-09-17] MEDS: ZOSYN VIAL 3.375 GRAMS 3.375 G in NS 100 ML IV + SPIKE MINIBAG* 100 ML IV SCH ×3 (05:54→21:00)
[2020-09-17] MEDS: SOLU-Medrol 40 MG VIAL IVP SCH ×3 (05:54→21:00)
[2020-09-17 07:20] LABS: GIANT PLATELET FEW; PLATELET MORPHOLOGY COMMENT ABNORMAL (NORMAL)
[2020-09-17 07:21] LABS: ANISOCYTOSIS SLIGHT; HYPOCHROMASIA SLIGHT; MICROCYTOSIS SLIGHT
[2020-09-17 07:22] LABS: OVALOCYTES SLIGHT
[2020-09-17] MEDS: CELEXA PO SCH (08:57)
[2020-09-17] MEDS: VIBRAMYCIN 100 MG in D5W 250 ML IV 250 ML IV SCH ×2 (08:58→21:00)
[2020-09-17] MEDS: VITAMIN A PO SCH (08:58)
[2020-09-17] MEDS: LOVENOX INJ 30 MG SYR SC SCH ×2 (08:58→21:00)
[2020-09-17] MEDS: VITAMIN D3 125 mcg (5,000 UNITS) PO SCH (08:59)
[2020-09-17] MEDS: VITAMIN C PO SCH (08:59)
[2020-09-17] MEDS: ZINC SULFATE PO SCH (08:59)
[2020-09-17] MEDS: BROVANA IN SCH ×2 (10:04→21:24)
[2020-09-17] MEDS: PULMICORT NEB TX 0.5 MG NEB SCH ×2 (10:09→21:27)
[2020-09-17] MEDS: REMDESIVIR 100 MG in NS 250 ML IV 250 ML IV SCH (11:10)
[2020-09-17] MEDS: APRESOLINE INJ 20 MG VIAL IVP PRN ×2 (11:43→17:57)
--- NOTE | 2020-09-17 11:47 | PCM.PROG ---
Progress Note Progress Note for Day of Date of Exam: 09/17/20 Subjective Subjective: Patient seen at bedside, no acute events overnight. Patient is doing well, she is currently on HHFNC FiO2 45%. She has been ambulating to the bathroom and is sitting up in the recliner. She states she feels better, denies dyspnea on exertion od dizziness. Her appetite is good. Denies N/V/D. She does have dry cough. Patient's BP was noted to be elevated this AM, SBP in 180s. She does not take anything for HTN. Labs: WBC 7.4 Hgb 10.4 BUN/Cr: 16/0.73 K: 4.2 AB.51/34/61/27 sats 93% on FiO2 51% CXR (09/16/20): patchy pulmonary opacities present, stable Plan: Wean O2 as tolerated to keep sats > 92%. Continue nebs, pulmicort and IS. Continue IV Remdesivir, Soulmedrol, Zosyn and doxycycline. Continue vitamin support. Continue home medications. Will add IV hydralazine prn. PT/OT as tolerated. Ambulate in the room as tolerated. Monitor AM labs and imaging. Time spent for clinical assessment, reviewing labs/imaging, physical exam, decision making and documentation greater than 75 mins. Past Medical Family Social History Past Med/Fam/Surg Hx: No changes since H&P Allergies: Allergies No Known Drug Allergies Allergy (Verified 09/12/20 20:50) Review of Systems ROS: No change since H&P Vital Signs and I&O's Vital Signs: Temperature 98.3 F Pulse Rate 51 Respiratory Rate 28 Blood Pressure 182/83 O2 Sat by Pulse Oximetry 93 Intake and Output: Intake & Output 09/14/20 09/15/20 09/16/20 09/17/20 23:59 23:59 23:59 23:59 Intake Total 3759 / 3759 4105 / 4105 2782 / 2782 492 / 492 Output Total 350 / 350 Balance 3409 / 3409 4105 / 4105 2782 / 2782 492 / 492 Physical Exam Oriented: Normal Eyes: Normal Ear: Normal Nose: Normal Throat: Normal Respiratory: Generalized and Diminished (improved air entry ) Cardiovascular: Normal Auscultation: Bowel Sounds: Normal Tenderness: Normal Skin: Normal Musculoskeletal: Normal Psychiatric: Normal Mood Description: Calm and Appropriate Affect: Normal Speech Pattern: Clear and Appropriate Laboratory and Diagnostics Result Diagrams: 09/17/20 04:30 09/17/20 04:30 Labs: Laboratory WBC 7.4 X10^3/uL (3.6-10.0) 09/17/20 04:30 RBC 4.23 X10^6/uL (3.5-5.4) 09/17/20 04:30 Hgb 10.4 g/dL (12.0-16.0) L 09/17/20 04:30 Hct 31.6 % (36.0-47.0) L 09/17/20 04:30 MCV 74.7 fL (80.0-100.0) L 09/17/20 04:30 MCH 24.7 pg (27.0-34.0) L 09/17/20 04:30 MCHC 33.1 g/dL (33.0-35.0) 09/17/20 04:30 RDW 17.3 % (11.6-16.5) H 09/17/20 04:30 Plt Count 356 X10^3/uL (150.0-450.0) 09/17/20 04:30 Plt Count Comment Adequate (ADEQUATE) 09/17/20 04:30 MPV 7.7 fL (7.4-11.0) 09/17/20 04:30 Neut % (Auto) 81.8 % (42.0-75.0) H 09/17/20 04:30 Lymph % (Auto) 12.3 % (21.0-51.0) L 09/17/20 04:30 [place] % (Auto) 5.8 % (0.0-13.0) 09/17/20 04:30 Eos % (Auto) 0.0 % (0.9-2.9) L 09/17/20 04:30 Baso % (Auto) 0.1 % (0.2-1.0) L 09/17/20 04:30 Neut # (Auto) 6.0 x10^3/uL (2.2-4.8) H 09/17/20 04:30 Lymph # (Auto) 0.9 X10^3/uL (1.3-2.9) L 09/17/20 04:30 [place] # (Auto) 0.4 x10^3/uL (0.3-0.8) 09/17/20 04:30 Eos # (Auto) 0.0 x10^3/uL (0.0-0.2) 09/17/20 04:30 Baso # (Auto) 0.0 X10^3/uL (0.0-0.1) 09/17/20 04:30 Absolute Nucleated RBC 0.2 /100WBC 09/17/20 04:30 Total Counted 100 09/17/20 04:30 Neutrophils % (Manual) 81 % (39-76) H 09/17/20 04:30 Lymphocytes % (Manual) 14 % (13-43) 09/17/20 04:30 Monocytes % (Manual) 5 % (4-9) 09/17/20 04:30 Giant Platelets Few 09/17/20 04:30 Plt Morphology Comment Abnormal (NORMAL) A 09/17/20 04:30 RBC Morphology Abnormal (NORMAL) A 09/17/20 04:30 Hypochromasia Slight A 09/17/20 04:30 Anisocytosis Slight A 09/17/20 04:30 Microcytosis Slight A 09/17/20 04:30 Ovalocytes Slight A 09/17/20 04:30 D-Dimer 0.55 ug/ml (0.0-0.57) 09/12/20 21:13 Sample Site Lb 09/14/20 04:58 ABG pH 7.510 (7.35-7.45) H 09/14/20 04:58 ABG pCO2 34.0 mmHg (35.0-45.0) L 09/14/20 04:58 ABG pO2 61.0 mmHg (80.0-100.0) L 09/14/20 04:58 ABG HCO3 27.1 mmol/L (22-26) H 09/14/20 04:58 ABG O2 Saturation 93.0 % (90-100) 09/14/20 04:58 ABG Base Excess 4.2 mmol/L (-2.0-2.0) H 09/14/20 04:58 Justus Test N/a 09/14/20 04:58 A-a Gradient 260.0 mmHg 09/14/20 04:58 FiO2 51.0 09/14/20 04:58 Blood Gas Comments Mireya well ae 09/14/20 04:58 Sodium 145 mmol/L (136-145) 09/17/20 04:30 Corrected Sodium 148 mmol/L (136-145) H 09/17/20 04:30 Potassium 4.2 mmol/L (3.5-5.1) 09/17/20 04:30 Chloride 108 mmol/L (98-107) H 09/17/20 04:30 Carbon Dioxide 30.8 mmol/L (21-32) 09/17/20 04:30 BUN 16 mg/dL (7-18) 09/17/20 04:30 Creatinine 0.73 mg/dL (0.55-1.02) 09/17/20 04:30 Est GFR (MDRD) Af Amer > 60 (>60) 09/17/20 04:30 Est GFR (MDRD) Non-Af > 60 (>60) 09/17/20 04:30 Glucose 208 mg/dL (65-99) H 09/17/20 04:30 Calcium 7.7 mg/dL (8.5-10.1) L 09/17/20 04:30 Corrected Calcium 9.2 mg/dL (8.5-10.1) 09/17/20 04:30 Total Bilirubin 0.30 mg/dL (0.2-1.0) 09/17/20 04:30 AST 33 Units/L (15-37) 09/17/20 04:30 ALT 66 Units/L (12-78) 09/17/20 04:30 Alkaline Phosphatase 102 Units/L (46-116) 09/17/20 04:30 C-Reactive Protein 6.20 mg/L (0-3.0) H 09/17/20 04:30 Total Protein 5.9 g/dL (6.4-8.2) L 09/17/20 04:30 Albumin 2.1 g/dL (3.4-5.0) L 09/17/20 04:30 Globulin 3.8 g/dL (2.5-4.5) 09/17/20 04:30 Albumin/Globulin Ratio 0.6 Ratio (1.1-2.1) L 09/17/20 04:30 SARS-CoV-2 (PCR) Positive (NEGATIVE) A 09/13/20 00:40 Influenza Type A (PCR) Negative (NEGATIVE) 09/13/20 00:40 Influenza Type B (PCR) Negative (NEGATIVE) 09/13/20 00:40 RSV (PCR) Negative (NEGATIVE) 09/13/20 00:40 Plan (1) Pneumonia due to COVID-19 virus: Status: Acute (2) Acute respiratory failure with hypoxia: Status: Acute (3) Acute dehydration: Status: Acute (4) Atypical pneumonia: Status: Acute (5) Multiple sclerosis: Status: Acute
[2020-09-17] MEDS: TUSSIONEX PENNKINETIC SUSP PO PRN (21:00)
[2020-09-17] MEDS: TESSALON PERLES PO PRN (21:00)
[2020-09-17] MEDS: TYLENOL 325 MG TAB PO PRN (21:00)
[2020-09-18] MEDS: APRESOLINE INJ 20 MG VIAL IVP PRN ×3 (00:10→17:04)
[2020-09-18] MEDS: SOLU-Medrol 40 MG VIAL IVP SCH (05:53)
[2020-09-18] MEDS: ZOSYN VIAL 3.375 GRAMS 3.375 G in NS 100 ML IV + SPIKE MINIBAG* 100 ML IV SCH ×3 (05:53→21:30)
[2020-09-18 06:15] LABS: BASOPHILS % (AUTO) 0 % (0.2-1.0); HEMOGLOBIN 10.8 g/dL (12.0-16.0); LYMPHOCYTES # (AUTO) 0.8 X10^3/uL (1.3-2.9); LYMPHOCYTES % (AUTO) 10.9 % (21.0-51.0); MEAN CORPUSCULAR HEMOGLOBIN 24.4 pg (27.0-34.0); MEAN CORPUSCULAR HGB CONC 32.7 g/dL (33.0-35.0); MEAN CORPUSCULAR VOLUME 74.6 fL (80.0-100.0); MEAN PLATELET VOLUME 7.8 fL (7.4-11.0); MONOCYTES # (AUTO) 0.5 x10^3/uL (0.3-0.8); MONOCYTES % (AUTO) 6.9 % (0.0-13.0); NEUTROPHILS % (AUTO) 82.2 % (42.0-75.0); PLATELET COUNT 391 X10^3/uL (150.0-450.0); RED BLOOD COUNT 4.42 X10^6/uL (3.5-5.4); RED CELL DISTRIBUTION WIDTH 17.2 % (11.6-16.5); WHITE BLOOD COUNT 7.3 X10^3/uL (3.6-10.0)
[2020-09-18 06:36] LABS: ALANINE AMINOTRANSFERASE 56 Units/L (12-78); ALKALINE PHOSPHATASE 88 Units/L (46-116); ASPARTATE AMINO TRANSFERASE 27 Units/L (15-37); BLOOD UREA NITROGEN 13 mg/dL (7-18); CALCIUM 7.6 mg/dL (8.5-10.1); CARBON DIOXIDE 30.7 mmol/L (21-32); CHLORIDE 108 mmol/L (98-107); COR CA(FOR HYPOALB) 9.2 mg/dL (8.5-10.1); COR NA(FOR HYPERGLY) 148 mmol/L (136-145); CREATININE 0.66 mg/dL (0.55-1.02); SODIUM 145 mmol/L (136-145); TOTAL PROTEIN 5.5 g/dL (6.4-8.2); eGFR NON BLACK RACES > 60 (>60)
[2020-09-18 07:35] LABS: BAND NEUTROPHILS % 4 % (0-10)
[2020-09-18 07:36] LABS: ANISOCYTOSIS SLIGHT; PLATELET MORPHOLOGY COMMENT NORMAL (NORMAL)
[2020-09-18] MEDS: VITAMIN A PO SCH (08:07)
[2020-09-18] MEDS: VITAMIN C PO SCH (08:07)
[2020-09-18] MEDS: ZINC SULFATE PO SCH (08:07)
[2020-09-18] MEDS: CELEXA PO SCH (08:07)
[2020-09-18] MEDS: LOVENOX INJ 30 MG SYR SC SCH ×2 (08:07→21:29)
[2020-09-18] MEDS: VITAMIN D3 125 mcg (5,000 UNITS) PO SCH (08:08)
[2020-09-18] MEDS: BROVANA IN SCH ×2 (09:26→20:50)
[2020-09-18] MEDS: VIBRAMYCIN 100 MG in D5W 250 ML IV 250 ML IV SCH ×2 (09:28→21:30)
[2020-09-18] MEDS: PULMICORT NEB TX 0.5 MG NEB SCH ×2 (09:31→20:50)
[2020-09-18] MEDS: TYLENOL 325 MG TAB PO PRN (10:15)
--- NOTE | 2020-09-18 11:14 | PCM.PROG ---
Progress Note Progress Note for Day of Date of Exam: 09/18/20 Subjective Subjective: Patient seen at bedside, no acute events overnight. Patient is doing well, she was switched back to NC yesterday and is currently on 3L. She sat in the recliner all day yesterday and states she feels a lot better today. Her appetite is normal. She has been ambulating in the room. Labs: WBC 7.3 Hgb 10.8 BUN/Cr: 13/0.66 K: 3.8 AB.51/34/61/27 sats 93% on FiO2 51% CXR (09/16/20): patchy pulmonary opacities present, stable Plan: Wean O2 as tolerated to keep sats > 92%. RT to do walk test so home oxygen can be set up. Continue nebs, pulmicort and IS. Continue IV Remdesivir, So ulmedrol, Zosyn and doxycycline. Will taper solumedrol to BID. Continue vitamin support. Continue home medications. Continue IV hydralazine prn. PT/OT as tolerated. Ambulate in the room as tolerated. Monitor AM labs and imaging. Possible discharge tomorrow. Time spent for clinical assessment, reviewing labs/imaging, physical exam, decision making and documentation greater than 75 mins. Past Medical Family Social History Past Med/Fam/Surg Hx: No changes since H&P Allergies: Allergies No Known Drug Allergies Allergy (Verified 09/12/20 20:50) Review of Systems ROS: No change since H&P Vital Signs and I&O's Vital Signs: Temperature 98.0 F Pulse Rate 73 Respiratory Rate 28 Blood Pressure 138/63 O2 Sat by Pulse Oximetry 90 Intake and Output: Intake & Output 09/15/20 09/16/20 09/17/20 09/18/20 23:59 23:59 23:59 23:59 Intake Total 4105 / 4105 2782 / 2782 3408 / 3408 380 / 380 Balance 4105 / 4105 2782 / 2782 3408 / 3408 380 / 380 Physical Exam Oriented: Normal Eyes: Normal Ear: Normal Nose: Normal Throat: Normal Respiratory: Generalized and Diminished (improved air entry ) Cardiovascular: Normal Auscultation: Bowel Sounds: Normal Tenderness: Normal Skin: Normal Musculoskeletal: Normal Psychiatric: Normal Mood Description: Calm and Appropriate Affect: Normal Speech Pattern: Clear and Appropriate Laboratory and Diagnostics Result Diagrams: 09/18/20 04:51 09/18/20 04:51 Labs: Laboratory WBC 7.3 X10^3/uL (3.6-10.0) 09/18/20 04:51 RBC 4.42 X10^6/uL (3.5-5.4) 09/18/20 04:51 Hgb 10.8 g/dL (12.0-16.0) L 09/18/20 04:51 Hct 33.0 % (36.0-47.0) L 09/18/20 04:51 MCV 74.6 fL (80.0-100.0) L 09/18/20 04:51 MCH 24.4 pg (27.0-34.0) L 09/18/20 04:51 MCHC 32.7 g/dL (33.0-35.0) L 09/18/20 04:51 RDW 17.2 % (11.6-16.5) H 09/18/20 04:51 Plt Count 391 X10^3/uL (150.0-450.0) 09/18/20 04:51 Plt Count Comment Adequate (ADEQUATE) 09/18/20 04:51 MPV 7.8 fL (7.4-11.0) 09/18/20 04:51 Neut % (Auto) 82.2 % (42.0-75.0) H 09/18/20 04:51 Lymph % (Auto) 10.9 % (21.0-51.0) L 09/18/20 04:51 [place] % (Auto) 6.9 % (0.0-13.0) 09/18/20 04:51 Eos % (Auto) 0.0 % (0.9-2.9) L 09/18/20 04:51 Baso % (Auto) 0 % (0.2-1.0) L 09/18/20 04:51 Neut # (Auto) 6.0 x10^3/uL (2.2-4.8) H 09/18/20 04:51 Lymph # (Auto) 0.8 X10^3/uL (1.3-2.9) L 09/18/20 04:51 [place] # (Auto) 0.5 x10^3/uL (0.3-0.8) 09/18/20 04:51 Eos # (Auto) 0.0 x10^3/uL (0.0-0.2) 09/18/20 04:51 Baso # (Auto) 0.0 X10^3/uL (0.0-0.1) 09/18/20 04:51 Absolute Nucleated RBC 0.6 /100WBC 09/18/20 04:51 Total Counted 100 09/18/20 04:51 Neutrophils % (Manual) 88 % (39-76) H 09/18/20 04:51 Band Neutrophils % 4 % (0-10) 09/18/20 04:51 Lymphocytes % (Manual) 6 % (13-43) L 09/18/20 04:51 Monocytes % (Manual) 2 % (4-9) L 09/18/20 04:51 Giant Platelets Few 09/17/20 04:30 Plt Morphology Comment Normal (NORMAL) 09/18/20 04:51 RBC Morphology Abnormal (NORMAL) A 09/18/20 04:51 Hypochromasia Slight A 09/17/20 04:30 Anisocytosis Slight A 09/18/20 04:51 Microcytosis Slight A 09/17/20 04:30 Ovalocytes Slight A 09/17/20 04:30 D-Dimer 0.55 ug/ml (0.0-0.57) 09/12/20 21:13 Sample Site Lb 09/14/20 04:58 ABG pH 7.510 (7.35-7.45) H 09/14/20 04:58 ABG pCO2 34.0 mmHg (35.0-45.0) L 09/14/20 04:58 ABG pO2 61.0 mmHg (80.0-100.0) L 09/14/20 04:58 ABG HCO3 27.1 mmol/L (22-26) H 09/14/20 04:58 ABG O2 Saturation 93.0 % (90-100) 09/14/20 04:58 ABG Base Excess 4.2 mmol/L (-2.0-2.0) H 09/14/20 04:58 Justus Test N/a 09/14/20 04:58 A-a Gradient 260.0 mmHg 09/14/20 04:58 FiO2 51.0 09/14/20 04:58 Blood Gas Comments Mireya well ae 09/14/20 04:58 Sodium 145 mmol/L (136-145) 09/18/20 04:51 Corrected Sodium 148 mmol/L (136-145) H 09/18/20 04:51 Potassium 3.8 mmol/L (3.5-5.1) 09/18/20 04:51 Chloride 108 mmol/L (98-107) H 09/18/20 04:51 Carbon Dioxide 30.7 mmol/L (21-32) 09/18/20 04:51 BUN 13 mg/dL (7-18) 09/18/20 04:51 Creatinine 0.66 mg/dL (0.55-1.02) 09/18/20 04:51 Est GFR (MDRD) Af Amer > 60 (>60) 09/18/20 04:51 Est GFR (MDRD) Non-Af > 60 (>60) 09/18/20 04:51 Glucose 205 mg/dL (65-99) H 09/18/20 04:51 Calcium 7.6 mg/dL (8.5-10.1) L 09/18/20 04:51 Corrected Calcium 9.2 mg/dL (8.5-10.1) 09/18/20 04:51 Total Bilirubin 0.40 mg/dL (0.2-1.0) 09/18/20 04:51 AST 27 Units/L (15-37) 09/18/20 04:51 ALT 56 Units/L (12-78) 09/18/20 04:51 Alkaline Phosphatase 88 Units/L (46-116) 09/18/20 04:51 C-Reactive Protein 6.20 mg/L (0-3.0) H 09/17/20 04:30 Total Protein 5.5 g/dL (6.4-8.2) L 09/18/20 04:51 Albumin 2.0 g/dL (3.4-5.0) L 09/18/20 04:51 Globulin 3.5 g/dL (2.5-4.5) 09/18/20 04:51 Albumin/Globulin Ratio 0.6 Ratio (1.1-2.1) L 09/18/20 04:51 SARS-CoV-2 (PCR) Positive (NEGATIVE) A 09/13/20 00:40 Influenza Type A (PCR) Negative (NEGATIVE) 09/13/20 00:40 Influenza Type B (PCR) Negative (NEGATIVE) 09/13/20 00:40 RSV (PCR) Negative (NEGATIVE) 09/13/20 00:40 Plan (1) Pneumonia due to COVID-19 virus: Status: Acute (2) Acute respiratory failure with hypoxia: Status: Acute (3) Acute dehydration: Status: Acute (4) Atypical pneumonia: Status: Acute (5) Multiple sclerosis: Status: Acute
[2020-09-18] MEDS ORDERED: NS 100 ML IV + SPIKE MINIBAG* 100 ML IV ONE (20:26)
[2020-09-18] MEDS ORDERED: SOLU-Medrol 40 MG VIAL IVP SCH (21:00)
[2020-09-18] MEDS: TUSSIONEX PENNKINETIC SUSP PO PRN (21:28)
[2020-09-18] MEDS: TESSALON PERLES PO PRN (21:29)
[2020-09-19] MEDS ORDERED: NS 250 ML IV 250 ML IV ONE (02:34)
[2020-09-19] MEDS: ZOSYN VIAL 3.375 GRAMS 3.375 G in NS 100 ML IV + SPIKE MINIBAG* 100 ML IV SCH ×2 (05:27→14:55)
[2020-09-19] MEDS ORDERED: ZESTRIL TAB 10 MG ONE (08:03)
[2020-09-19] MEDS ORDERED: SOLU-Medrol 40 MG VIAL ONE (08:04)
[2020-09-19] MEDS: SOLU-Medrol 40 MG VIAL IVP SCH ×2 (08:07→08:09)
[2020-09-19] MEDS: VITAMIN A PO SCH (08:08)
[2020-09-19] MEDS: VITAMIN C PO SCH (08:08)
[2020-09-19] MEDS: ZINC SULFATE PO SCH (08:08)
[2020-09-19] MEDS: CELEXA PO SCH (08:08)
[2020-09-19] MEDS: VIBRAMYCIN 100 MG in D5W 250 ML IV 250 ML IV SCH (08:09)
[2020-09-19] MEDS: VITAMIN D3 125 mcg (5,000 UNITS) PO SCH (08:09)
[2020-09-19] MEDS: LOVENOX INJ 30 MG SYR SC SCH (08:09)
[2020-09-19] MEDS ORDERED: ZESTRIL TAB 10 MG PO SCH (09:00)
[2020-09-19] MEDS: BROVANA IN SCH (09:11)
[2020-09-19] MEDS: PULMICORT NEB TX 0.5 MG NEB SCH (09:11)
--- NOTE | 2020-09-19 10:46 | W.DIS.FURT ---
Summary of Discharge Discharge Summary of Date Date of Exam: 09/19/20 Admission Date Date of Admission: 09/13/20 Admission Diagnosis Patient Problems (Updated 09/19/20 @ 13:37 by Eufemia Cordova) Acute dehydration (Acute) E86.0 COVID-19 (Acute) U07.1 Elevated LFTs (Acute) R79.89 Hypoxia (Acute) R09.02 Atypical pneumonia (Acute) J18.9 Hospital Course: Ms Dalton is a 45yo female with a PMH of MS, obesity, depression presents with worsening dyspnea. Patient tested positive for COVID-19 on Friday09/08/20 and has been having increased shortness of breath. Patient states her mother forced her to come to the ER as she was having difficulty breathing. She denies vomiting or diarrhea, appetite is normal. She has some cough. Denies fever or chills. In the ER, patient's ABG showed hypoxia on room air so she was placed on NC at 5L to keep sats above 90%. CXR showed atypical pneumonia, covid-19 test positive. She was admitted to ICU on COVID-19 protocol. She was started on IV fluids, antibiotics, Remdesivir and Solumedrol. She was also started on nebs, pulmicort and IS. Vitamins were added for additional immune support. Her labs were monitored daily and electrolytes replaced as needed. She did require HHFNC at 53% for a few days. PT/OT was also consulted. Patient received aggressive pulmonary therapy and was able to be weaned down to 3 L NC. She was ambulating in the room and felt a lot better. Her appetite was normal and she was tolerating oral intake. She was stable to be discharged home. Home oxygen was set up for patient to use at home. She will follow up with PCP in one week. Vital Signs: Vital Signs (72 hours) 09/16/20 11:00 09/16/20 12:00 09/16/20 13:00 Temperature 98.0 F Pulse Rate 55 L 65 60 Respiratory Rate 30 H 40 H 30 H Blood Pressure 164/84 156/74 158/70 O2 Sat by Pulse Oximetry 88 L 91 L 92 L 09/16/20 14:00 09/16/20 15:00 09/16/20 16:00 Temperature 98.0 F Pulse Rate 56 L 58 L 59 L Respiratory Rate 35 H 37 H 39 H Blood Pressure 169/75 169/78 180/78 O2 Sat by Pulse Oximetry 93 L 94 L 95 09/16/20 17:00 09/16/20 18:00 09/16/20 18:30 Temperature Pulse Rate 57 L 67 Respiratory Rate 33 H 32 H 22 Blood Pressure 158/63 177/79 O2 Sat by Pulse Oximetry 95 92 L 09/16/20 19:00 09/16/20 20:00 09/16/20 20:20 Temperature 98.1 F Pulse Rate 58 L 56 L 58 L Respiratory Rate 33 H 33 H 34 H Blood Pressure 183/81 181/66 O2 Sat by Pulse Oximetry 93 L 94 L 94 L 09/16/20 21:00 09/16/20 22:00 09/16/20 23:00 Temperature Pulse Rate 75 59 L 60 Respiratory Rate 42 H 35 H 36 H Blood Pressure 185/77 165/76 178/77 O2 Sat by Pulse Oximetry 93 L 90 L 92 L 09/17/20 00:00 09/17/20 01:00 09/17/20 02:00 Temperature 99.5 F Pulse Rate 55 L 53 L 53 L Respiratory Rate 31 H 28 H 28 H Blood Pressure 171/73 179/78 171/74 O2 Sat by Pulse Oximetry 91 L 92 L 95 09/17/20 03:00 09/17/20 04:00 09/17/20 05:00 Temperature 98.3 F Pulse Rate 50 L 52 L 57 L Respiratory Rate 16 27 H 27 H Blood Pressure 161/72 165/77 181/80 O2 Sat by Pulse Oximetry 95 94 L 94 L 09/17/20 06:00 09/17/20 07:00 09/17/20 08:00 Temperature 98.3 F Pulse Rate 49 L 52 L 67 Respiratory Rate 26 H 28 H 17 Blood Pressure 177/80 162/70 151/85 O2 Sat by Pulse Oximetry 94 L 91 L 95 09/17/20 09:00 09/17/20 10:00 09/17/20 10:04 Temperature Pulse Rate 55 L 51 L 63 Respiratory Rate 25 H 28 H 31 H Blood Pressure 169/76 182/83 O2 Sat by Pulse Oximetry 93 L 93 L 95 09/17/20 10:09 09/17/20 11:00 09/17/20 12:00 Temperature 98.3 F Pulse Rate 54 L 57 L 62 Respiratory Rate 22 22 Blood Pressure 175/78 148/73 O2 Sat by Pulse Oximetry 99 92 L 90 L 09/17/20 13:00 09/17/20 14:00 09/17/20 15:00 Temperature Pulse Rate 76 73 70 Respiratory Rate 20 22 22 Blood Pressure 165/77 165/76 174/77 O2 Sat by Pulse Oximetry 91 L 93 L 95 09/17/20 16:00 09/17/20 17:00 09/17/20 18:00 Temperature 98.1 F Pulse Rate 59 L 74 83 Respiratory Rate 23 22 23 Blood Pressure 168/80 187/86 166/72 O2 Sat by Pulse Oximetry 94 L 96 94 L 09/17/20 19:00 09/17/20 20:00 09/17/20 21:00 Temperature 98.1 F Pulse Rate 72 69 68 Respiratory Rate 35 H 37 H 35 H Blood Pressure 145/67 151/74 168/82 O2 Sat by Pulse Oximetry 94 L 95 97 09/17/20 21:24 09/17/20 21:27 09/17/20 22:00 Temperature Pulse Rate 75 77 74 Respiratory Rate 35 H Blood Pressure 163/77 O2 Sat by Pulse Oximetry 98 96 93 L 09/17/20 23:00 09/18/20 00:00 09/18/20 01:00 Temperature 98.3 F Pulse Rate 64 67 68 Respiratory Rate 25 H 34 H 39 H Blood Pressure 173/84 194/91 168/81 O2 Sat by Pulse Oximetry 96 94 L 94 L 09/18/20 02:00 09/18/20 03:00 09/18/20 04:00 Temperature 98.1 F Pulse Rate 69 62 61 Respiratory Rate 33 H 29 H 25 H Blood Pressure 155/80 150/72 173/81 O2 Sat by Pulse Oximetry 93 L 95 94 L 09/18/20 05:00 09/18/20 06:00 09/18/20 07:00 Temperature Pulse Rate 53 L 54 L 70 Respiratory Rate 23 27 H 25 H Blood Pressure 184/84 178/82 167/79 O2 Sat by Pulse Oximetry 90 L 90 L 91 L 09/18/20 08:00 09/18/20 08:40 09/18/20 09:00 Temperature 98.0 F Pulse Rate 63 82 72 Respiratory Rate 26 H 25 H 24 Blood Pressure 178/85 160/76 146/68 O2 Sat by Pulse Oximetry 91 L 92 L 92 L 09/18/20 09:26 09/18/20 09:31 09/18/20 10:00 Temperature Pulse Rate 82 79 93 H Respiratory Rate 26 H Blood Pressure 135/65 O2 Sat by Pulse Oximetry 93 L 96 92 L 09/18/20 10:15 09/18/20 11:00 09/18/20 11:15 Temperature Pulse Rate 73 Respiratory Rate 26 H 28 H 25 H Blood Pressure 138/63 O2 Sat by Pulse Oximetry 90 L 09/18/20 12:00 09/18/20 13:00 09/18/20 14:00 Temperature 97.0 F L Pulse Rate 68 72 75 Respiratory Rate 28 H 26 H 25 H Blood Pressure 166/71 177/89 169/81 O2 Sat by Pulse Oximetry 94 L 93 L 93 L 09/18/20 15:00 09/18/20 16:00 09/18/20 17:00 Temperature 97.7 F Pulse Rate 79 61 70 Respiratory Rate 22 26 H 25 H Blood Pressure 144/76 152/75 163/79 O2 Sat by Pulse Oximetry 94 L 93 L 94 L 09/18/20 17:35 09/18/20 18:00 09/18/20 18:30 Temperature Pulse Rate 94 H 77 68 Respiratory Rate 24 24 27 H Blood Pressure 150/81 145/75 O2 Sat by Pulse Oximetry 95 97 93 L 09/18/20 19:00 09/18/20 19:15 09/18/20 19:30 Temperature Pulse Rate 79 66 80 Respiratory Rate 31 H 26 H 32 H Blood Pressure 152/80 O2 Sat by Pulse Oximetry 93 L 93 L 93 L 09/18/20 19:45 09/18/20 20:00 09/18/20 20:15 Temperature 98.4 F Pulse Rate 69 77 66 Respiratory Rate 27 H 24 27 H Blood Pressure 141/71 O2 Sat by Pulse Oximetry 95 94 L 93 L 09/18/20 20:30 09/18/20 20:45 09/18/20 20:50 Temperature Pulse Rate 65 80 85 Respiratory Rate 27 H 52 H Blood Pressure O2 Sat by Pulse Oximetry 94 L 100 93 L 09/18/20 21:00 09/18/20 21:15 09/18/20 21:30 Temperature Pulse Rate 73 84 77 Respiratory Rate 35 H 32 H 34 H Blood Pressure 156/81 O2 Sat by Pulse Oximetry 96 93 L 97 09/18/20 22:00 09/18/20 23:00 09/19/20 00:00 Temperature 98 F Pulse Rate 66 72 66 Respiratory Rate 26 H 31 H 23 Blood Pressure 161/76 169/82 179/86 O2 Sat by Pulse Oximetry 96 97 96 09/19/20 01:00 09/19/20 02:00 09/19/20 03:00 Temperature Pulse Rate 81 71 59 L Respiratory Rate 22 24 24 Blood Pressure 173/83 166/79 162/76 O2 Sat by Pulse Oximetry 97 95 93 L 09/19/20 04:00 09/19/20 05:00 09/19/20 06:00 Temperature Pulse Rate 63 80 61 Respiratory Rate 24 22 Blood Pressure 149/74 160/79 145/74 O2 Sat by Pulse Oximetry 94 L 96 95 09/19/20 07:00 09/19/20 08:00 09/19/20 09:00 Temperature 98.5 F Pulse Rate 61 68 65 Respiratory Rate 20 25 H 24 Blood Pressure 134/74 163/79 151/80 O2 Sat by Pulse Oximetry 96 94 L 95 09/19/20 10:00 Temperature Pulse Rate 73 Respiratory Rate 25 H Blood Pressure 171/87 O2 Sat by Pulse Oximetry 95 Labs: Laboratory Last Values WBC 7.3 X10^3/uL (3.6-10.0) 09/18/20 04:51 RBC 4.42 X10^6/uL (3.5-5.4) 09/18/20 04:51 Hgb 10.8 g/dL (12.0-16.0) L 09/18/20 04:51 Hct 33.0 % (36.0-47.0) L 09/18/20 04:51 MCV 74.6 fL (80.0-100.0) L 09/18/20 04:51 MCH 24.4 pg (27.0-34.0) L 09/18/20 04:51 MCHC 32.7 g/dL (33.0-35.0) L 09/18/20 04:51 RDW 17.2 % (11.6-16.5) H 09/18/20 04:51 Plt Count 391 X10^3/uL (150.0-450.0) 09/18/20 04:51 Plt Count Comment Adequate (ADEQUATE) 09/18/20 04:51 MPV 7.8 fL (7.4-11.0) 09/18/20 04:51 Neut % (Auto) 82.2 % (42.0-75.0) H 09/18/20 04:51 Lymph % (Auto) 10.9 % (21.0-51.0) L 09/18/20 04:51 Sutton % (Auto) 6.9 % (0.0-13.0) 09/18/20 04:51 Eos % (Auto) 0.0 % (0.9-2.9) L 09/18/20 04:51 Baso % (Auto) 0 % (0.2-1.0) L 09/18/20 04:51 Neut # (Auto) 6.0 x10^3/uL (2.2-4.8) H 09/18/20 04:51 Lymph # (Auto) 0.8 X10^3/uL (1.3-2.9) L 09/18/20 04:51 Sutton # (Auto) 0.5 x10^3/uL (0.3-0.8) 09/18/20 04:51 Eos # (Auto) 0.0 x10^3/uL (0.0-0.2) 09/18/20 04:51 Baso # (Auto) 0.0 X10^3/uL (0.0-0.1) 09/18/20 04:51 Absolute Nucleated RBC 0.6 /100WBC 09/18/20 04:51 Total Counted 100 09/18/20 04:51 Neutrophils % (Manual) 88 % (39-76) H 09/18/20 04:51 Band Neutrophils % 4 % (0-10) 09/18/20 04:51 Lymphocytes % (Manual) 6 % (13-43) L 09/18/20 04:51 Monocytes % (Manual) 2 % (4-9) L 09/18/20 04:51 Giant Platelets Few 09/17/20 04:30 Plt Morphology Comment Normal (NORMAL) 09/18/20 04:51 RBC Morphology Abnormal (NORMAL) A 09/18/20 04:51 Hypochromasia Slight A 09/17/20 04:30 Anisocytosis Slight A 09/18/20 04:51 Microcytosis Slight A 09/17/20 04:30 Ovalocytes Slight A 09/17/20 04:30 D-Dimer 0.55 ug/ml (0.0-0.57) 09/12/20 21:13 Sample Site Lb 09/14/20 04:58 ABG pH 7.510 (7.35-7.45) H 09/14/20 04:58 ABG pCO2 34.0 mmHg (35.0-45.0) L 09/14/20 04:58 ABG pO2 61.0 mmHg (80.0-100.0) L 09/14/20 04:58 ABG HCO3 27.1 mmol/L (22-26) H 09/14/20 04:58 ABG O2 Saturation 93.0 % (90-100) 09/14/20 04:58 ABG Base Excess 4.2 mmol/L (-2.0-2.0) H 09/14/20 04:58 Justus Test N/a 09/14/20 04:58 A-a Gradient 260.0 mmHg 09/14/20 04:58 FiO2 51.0 09/14/20 04:58 Blood Gas Comments Mireya well ae 09/14/20 04:58 Sodium 145 mmol/L (136-145) 09/18/20 04:51 Corrected Sodium 148 mmol/L (136-145) H 09/18/20 04:51 Potassium 3.8 mmol/L (3.5-5.1) 09/18/20 04:51 Chloride 108 mmol/L (98-107) H 09/18/20 04:51 Carbon Dioxide 30.7 mmol/L (21-32) 09/18/20 04:51 BUN 13 mg/dL (7-18) 09/18/20 04:51 Creatinine 0.66 mg/dL (0.55-1.02) 09/18/20 04:51 Est GFR (MDRD) Af Amer > 60 (>60) 09/18/20 04:51 Est GFR (MDRD) Non-Af > 60 (>60) 09/18/20 04:51 Glucose 205 mg/dL (65-99) H 09/18/20 04:51 Calcium 7.6 mg/dL (8.5-10.1) L 09/18/20 04:51 Corrected Calcium 9.2 mg/dL (8.5-10.1) 09/18/20 04:51 Total Bilirubin 0.40 mg/dL (0.2-1.0) 09/18/20 04:51 AST 27 Units/L (15-37) 09/18/20 04:51 ALT 56 Units/L (12-78) 09/18/20 04:51 Alkaline Phosphatase 88 Units/L (46-116) 09/18/20 04:51 C-Reactive Protein 6.20 mg/L (0-3.0) H 09/17/20 04:30 Total Protein 5.5 g/dL (6.4-8.2) L 09/18/20 04:51 Albumin 2.0 g/dL (3.4-5.0) L 09/18/20 04:51 Globulin 3.5 g/dL (2.5-4.5) 09/18/20 04:51 Albumin/Globulin Ratio 0.6 Ratio (1.1-2.1) L 09/18/20 04:51 SARS-CoV-2 (PCR) Positive (NEGATIVE) A 09/13/20 00:40 Influenza Type A (PCR) Negative (NEGATIVE) 09/13/20 00:40 Influenza Type B (PCR) Negative (NEGATIVE) 09/13/20 00:40 RSV (PCR) Negative (NEGATIVE) 09/13/20 00:40 Reason For Visit: COVID19,ATYPICAL PNEU, HYPOXIA, DEHYDRATION Discharge Date Discharge Date: 09/19/20 Discharge Diagnosis All Active Problems (Updated 09/19/20 @ 13:37 by Eufemia Cordova) Multiple sclerosis (Chronic) Acute respiratory failure with hypoxia (Acute) Pneumonia due to COVID-19 virus (Acute) Acute dehydration (Acute) COVID-19 (Acute) Elevated LFTs (Acute) Hypoxia (Acute) Atypical pneumonia (Acute) Plan of Treatment: Continue with present treatment and follow up plan. Pt is to keep follow up appointment as instructed and take medications as ordered. Discharge Medications Discharge Medications: No Known Drug Allergies Allergy (Verified 09/12/20 20:50) CONTINUE taking the following medications citalopram 40 mg PO DAILY 09/13/20 [History] New Prescriptions albuterol sulfate 2 puff INHALATION Q6H PRN #18 g 09/13/20 [Rx] albuterol sulfate 2 puff INHALATION Q6H PRN #6.7 g 09/19/20 [Rx] benzonatate [Tessalon Perles] 100 mg PO BID-TID PRN #20 cap 09/19/20 [Rx] ipratropium-albuterol 3 ml INHALATION QID PRN #90 ml 09/19/20 [Rx] lisinopril 10 mg PO DAILY 30 Days #30 tab 09/19/20 [Rx] nebulizers #1 ea 09/19/20 [Rx] prednisone See Rx Instructions .ROUTE .COMPLEX #21 ea 09/19/20 [Rx] Follow up and Referral Follow Up: 1 Week (PCP) Discharge Disposition Discharge Disposition: Home Discharge Condition: Stable Discharge Plan Discharge Plan Hospital Course: Ms Dalton is a 45yo female with a PMH of MS, obesity, depression presents with worsening dyspnea. Patient tested positive for COVID-19 on Friday09/08/20 and has been having increased shortness of breath. Patient states her mother forced her to come to the ER as she was having difficulty breathing. She denies vomiting or diarrhea, appetite is normal. She has some cough. Denies fever or chills. In the ER, patient's ABG showed hypoxia on room air so she was placed on NC at 5L to keep sats above 90%. CXR showed atypical pneumonia, covid-19 test positive. She was admitted to ICU on COVID-19 protocol. She was started on IV fluids, antibiotics, Remdesivir and Solumedrol. She was also started on nebs, pulmicort and IS. Vitamins were added for additional immune support. Her labs were monitored daily and electrolytes replaced as needed. She did require HHFNC at 53% for a few days. PT/OT was also consulted. Patient received aggressive pulmonary therapy and was able to be weaned down to 3 L NC. She was ambulating in the room and felt a lot better. Her appetite was normal and she was tolerating oral intake. She was stable to be discharged home. Home oxygen was set up for patient to use at home. She will follow up with PCP in one week. Patient Disposition: HOME, SELF-CARE Condition: Stable Health Concerns: Post Hospitalization: new medications and changes needed to prevent readmission or further decline. Pt educated and given instructions on all concerns. Care Plan Goals: Problem: Respiratory Complications Goal: Improved Uncomplicated Respiratory Status Instructions: Follow provided instructions. Follow up with primary physician as directed. Contact primary care physician or report to the closest Emergency Room if condition worsens. Plan of Treatment: Continue with present treatment and follow up plan. Pt is to keep follow up appointment as instructed and take medications as ordered. Prescriptions: New albuterol sulfate 90 mcg/actuation HFA aerosol inhaler 2 puff inhalation Q6H PRNQty: 18 RF: 0 albuterol sulfate 90 mcg/actuation HFA aerosol inhaler 2 puff inhalation Q6H PRNQty: 6.7 RF: 1 prednisone 10 mg tablets,dose pack See Rx Instructions .ROUTE .COMPLEX Qty: 21 RF: 0 ipratropium-albuterol 0.5 mg-3 mg(2.5 mg base)/3 mL solution for nebulization 3 ml inhalation QID PRNQty: 90 RF: 1 (DME) nebulizers Misc See Rx Instructions .ROUTE .MEDSUPPLY Qty: 1 RF: 0 benzonatate [Tessalon Perles] 100 mg capsule 100 mg PO BID-TID PRN (Reason: cough) Qty: 20 RF: 0 lisinopril 10 mg tablet 10 mg PO DAILY 30 Days Qty: 30 RF: 0 Continued citalopram 40 mg tablet 40 mg PO DAILY RF: 0 Follow ups/Referrals Follow ups/Referrals: Eufemia Cordova [STAFF PHYSICIAN] - 09/26/20 11:30 am Instructions Instructions: Viral Respiratory Infection, [id number], Home Oxygen Use, Adult, Hypoxia, How to Use a Nebulizer, Adult, Hypertension, [id number], Community-Acquired Pneumonia, Adult, [id number] Activity Restrictions/Additional Instructions: please call doctor in AM to get appointment for home oxygen Stand Alone Forms: Excuse From Work or School, Precautions for COVID19, Patient Portal, Social Distancing
[2020-09-19 14:18] VITALS: BP 172/91
== END 2020-09-19 14:40 | disposition home or self-care (01) | DRG 177 ==
LOC: ER 20:37 → ICU 20:37 → OBSVTOIN 09-13 00:34 → ICU 09-13 01:30
PROVIDERS: ADMIT Internal Medicine; ATTEND Internal Medicine
DX: R94.5 Abnormal results of liver function studies; J12.82 Pneumonia due to coronavirus disease 2019; U07.1 COVID-19; E86.0 Dehydration; G35 Multiple sclerosis; R79.82 Elevated C-reactive protein (CRP); J96.01 Acute respiratory failure with hypoxia